=== PATIENT | female | born 1950 | race African-American/Black ===

== ENCOUNTER 2017-04-10 16:57 | Emergency (ER) | payer OTHER, MEDICAID ==
[2017-04-10 17:14] VITALS: BMI 24.1
[2017-04-10] MEDS ORDERED: NS 1000 ML 1,000 ML IV ONE (17:43)
--- NOTE | 2017-04-10 17:47 | DR.DIZZY ---
HPI - Time seen Time seen: 17:42 - PCP Primary Care Physician: JENNIFER SÁNCHEZ - Complaint Chief Complaint:: PT STATES " I AM WEAK AND MY EQU IS OFF AND I FEEL LIKE I DID WHEN I HAD A MINI STOKE".. Self Treatment fo Chief Complaint: PT READING A NEWSPAPER - Source History Provided: Patient - Mode of Arrival Mode of Arrival: Ambulatory - Timing Onset of Chief Complaint: 04/10/17 Symptom Onset: Unknown - Duration Duration: Unknown Duration: Hours - Location of Weakness Weakness Location: None - Context Onset: With heavy exertion Does pt take pot. toxic medication?: No History of: None, TIA Stroke Symptoms: None - Modifying factors Worsens: Nothing - Associated signs and symptoms Associated Signs and Symptoms: Imbalance, Weak PMH - PMH Past Medical History: Yes Past Medical History: Anemia, CHF, COPD, CVA, Dyslipidemia, GERD, Hypertension, [place] Past Surgical History: No Surgical History: Joint Replacement - Family History History of Family Medical Conditions: Yes Family Medical History: Diabetes Mellitus, Cancer, [place], Sudden Cardiac , Hypertension - Social History Does patient currently use any type of tobacco product: Yes Have you used tobacco products in the last 12 months: Yes Type of Tobacco Use: None Does any household member use tobacco: No Alcohol Use: None Do you use any recreational Drugs:: No Lives With: Family Lives Where: Home - infectious screening In the last 2 months have you had wt loss of >10#?: NO Have you had fever, night sweats or hemotysis?: No Have you traveled outside the country in the last 6 months?: No Isolation: Standard ROS - Review of Systems Eyes: No Symptoms Reported ENTM: No Symptoms Reported Respiratoy: No Symptoms Reported Cardiovascular: No Symptoms Reported Gastrointestinal/Abdominal: No Symptoms Reported Genitourinary: No Symptoms Reported Neurological: No Symptoms Reported Musculoskeletal: No Symptoms Reported Integumentary: No Symptoms Reported Hematologic/Lymphatic: No Symptoms Reported Endocrine: No Symptoms Reported Psychiatric: No Symptoms Reported All Other Systems: Reviewed and Negative PE - Vital Signs Vitals: Temperature 98.2 F Pulse Rate 115 Respiratory Rate 18 Blood Pressure [Right Arm] 185/75 Blood Pressure [Left Arm] 179/81 Blood Pressure 168/93 O2 Sat by Pulse Oximetry 99 - General Limitations: No Limitations General Appearance: Alert, In No Apparent Distress - Head Head Exam: Normal Inspection, Atraumatic - Eyes Eye exam: Normal Appearance, PERRL, EOMI Pupils: Regular, Round: Bilateral Sclera/Conjunctival: Normal Inspection: Bilateral Anterior Chamber: Normal Inspection: Bilateral - ENT ENT Exam: Normal Exam, Mucous Membranes Dry - Neck Neck Exam: Normal Inspection - Chest Chest Inspection: Normal Inspection - Respiratory Respiratory Exam: Normal Lung Sounds Bilat Respiratory Exam: Bilateral Clear to Auscultation - Cardiovascular Cardiovascular Exam: Regular Rate, Normal Rhythm - Abdominal Exam Abdominal Exam: Normal Inspection, Normal Bowel Sounds Abdominal Tenderness: negative: RUQ, RLQ, LUQ, LLQ, Epigastrium, Suprapubic, Diffuse, Mild, Moderate, Severe, Other - Rectal Rectal Exam: Deferred - Extremeties Extremities Exam: Normal Inspection - Back Back Exam: Normal Inspection, Full ROM - Neurologic Neurological Exam: Alert, Oriented X3, CN II-XII Intact Speech: Fluid Speech Cranial Nerve Exam: EOM Function (II, III, IV, ): Normal, Facial Sensation (V) : Normal, Gag reflex (XI): Normal Cerebellar Function: Finger to Nose: Normal, Heel to Kennedy: Normal Motor Strength - LUE: 3/5 Motor Strength - RUE: 3/5 Motor Strength - LLE: 3/5 Motor Strength - RLE: 3/5 DTR: achilles tendon (L): 2+ - Psychiatric Psychiatric Exam: Normal Affect, Normal Mood - Skin Skin Exam: Warm, Dry, Intact, Normal Color ROR - Labs Reviewed Result Diagrams: 04/10/17 18:06 04/10/17 18:06 Laboratory: WBC 7.5 X10^3/uL (3.6-10.0) 04/10/17 18:06 RBC 4.38 X10^6/uL (3.5-5.4) 04/10/17 18:06 Hgb 12.5 g/dL (12.0-16.0) 04/10/17 18:06 Hct 36.9 % (36.0-47.0) 04/10/17 18:06 MCV 84.3 fL (80.0-100.0) 04/10/17 18:06 MCH 28.6 pg (27.0-34.0) 04/10/17 18:06 MCHC 34.0 g/dL (33.0-35.0) 04/10/17 18:06 RDW 13.8 % (11.6-16.5) 04/10/17 18:06 Plt Count 194 X10^3/uL (150.0-450.0) 04/10/17 18:06 MPV 10.0 fL (7.4-11.0) 04/10/17 18:06 Neut % 61.3 % (42.0-75.0) 04/10/17 18:06 Lymph % 25.7 % (21.0-51.0) 04/10/17 18:06 Alfalfa % 9.9 % (0.0-13.0) 04/10/17 18:06 Eos % 2.6 % (0.9-2.9) 04/10/17 18:06 Baso % 0.5 % (0.2-1.0) 04/10/17 18:06 Neut # 4.6 x10^3/uL (2.2-4.8) 04/10/17 18:06 Lymph # 1.9 X10^3/uL (1.3-2.9) 04/10/17 18:06 Alfalfa # 0.7 x10^3/uL (0.3-0.8) 04/10/17 18:06 Eos # 0.2 x10^3/uL (0.0-0.2) 04/10/17 18:06 Baso # 0.0 X10^3/uL (0.0-0.1) 04/10/17 18:06 Absolute Nucleated RBC 0.0 /100WBC 04/10/17 18:06 Sodium 143 mmol/L (136-145) 04/10/17 18:06 Corrected Sodium 144 mmol/L (136-145) 04/10/17 18:06 Potassium 3.8 mmol/L (3.5-5.1) 04/10/17 18:06 Chloride 105 mmol/L (98-107) 04/10/17 18:06 Carbon Dioxide 30.0 mmol/L (21-32) 04/10/17 18:06 BUN 16 mg/dL (7-18) 04/10/17 18:06 Creatinine 0.77 mg/dL (0.55-1.02) 04/10/17 18:06 Est GFR (MDRD) Af Amer > 60 (>60) 04/10/17 18:06 Est GFR (MDRD) Non-Af > 60 (>60) 04/10/17 18:06 Glucose 161 mg/dL (65-99) H 04/10/17 18:06 Calcium 8.9 mg/dL (8.5-10.1) 04/10/17 18:06 Corrected Calcium TNP 04/10/17 18:06 Total Bilirubin 0.70 mg/dL (0.2-1.0) 04/10/17 18:06 AST 19 Units/L (15-37) 04/10/17 18:06 ALT 24 Units/L (12-78) 04/10/17 18:06 Alkaline Phosphatase 92 Units/L (46-116) 04/10/17 18:06 Total Protein 7.4 g/dL (6.4-8.2) 04/10/17 18:06 Albumin 3.9 g/dL (3.4-5.0) 04/10/17 18:06 Globulin 3.5 g/dL (2.5-4.5) 04/10/17 18:06 Albumin/Globulin Ratio 1.1 Ratio (1.1-2.1) 04/10/17 18:06 - Diagnosis Discharge Problem: Heat exhaustion Qualifiers: Encounter type: initial encounter Qualified Code(s): T67.5XXA - Heat exhaustion , unspecified, initial encounter - Discharge Plan Condition: Stable - Follow ups/Referrals Follow ups/Referrals: NFD,None [Primary Care Provider] - 3 days - Instructions
[2017-04-10] MEDS ORDERED: NS 1000 ML 1,000 ML ONE ×2 (18:05→18:59)
[2017-04-10 18:27] LABS: ALANINE AMINOTRANSFERASE 24 Units/L (12-78); ALBUMIN 3.9 g/dL (3.4-5.0); ALKALINE PHOSPHATASE 92 Units/L (46-116); ASPARTATE AMINO TRANSFERASE 19 Units/L (15-37); BASOPHILS % (AUTO) 0.5 % (0.2-1.0); BLOOD UREA NITROGEN 16 mg/dL (7-18); CALCIUM 8.9 mg/dL (8.5-10.1); CHLORIDE 105 mmol/L (98-107); COR NA(FOR HYPERGLY) 144 mmol/L (136-145); CREATININE 0.77 mg/dL (0.55-1.02); EOSINOPHILS # (AUTO) 0.2 x10^3/uL (0.0-0.2); EOSINOPHILS % (AUTO) 2.6 % (0.9-2.9); GLUCOSE 161 mg/dL (65-99); HEMATOCRIT 36.9 % (36.0-47.0); HEMOGLOBIN 12.5 g/dL (12.0-16.0); LYMPHOCYTES # (AUTO) 1.9 X10^3/uL (1.3-2.9); LYMPHOCYTES % (AUTO) 25.7 % (21.0-51.0); MEAN CORPUSCULAR HEMOGLOBIN 28.6 pg (27.0-34.0); MEAN CORPUSCULAR VOLUME 84.3 fL (80.0-100.0); MONOCYTES # (AUTO) 0.7 x10^3/uL (0.3-0.8); MONOCYTES % (AUTO) 9.9 % (0.0-13.0); NEUTROPHILS # (AUTO) 4.6 x10^3/uL (2.2-4.8); NEUTROPHILS % (AUTO) 61.3 % (42.0-75.0); PLATELET COUNT 194 X10^3/uL (150.0-450.0); RED BLOOD COUNT 4.38 X10^6/uL (3.5-5.4); RED CELL DISTRIBUTION WIDTH 13.8 % (11.6-16.5); SODIUM 143 mmol/L (136-145); TOTAL PROTEIN 7.4 g/dL (6.4-8.2); WHITE BLOOD COUNT 7.5 X10^3/uL (3.6-10.0); eGFR BLACK RACES > 60 (>60); eGFR NON BLACK RACES > 60 (>60)
[2017-04-10 19:36] VITALS: BP 155/75
== END 2017-04-10 19:45 | disposition home or self-care (01) ==
LOC: ER 17:26
DX: T67.5XXA Heat exhaustion, unspecified, initial encounter (principal)
CPT/HCPCS: 36415; 80053; 85025; 96365; 99283; A4222

== ENCOUNTER → 2017-04-21 | Outpatient (CLI) | payer OTHER, MEDICAID ==
[2017-04-10 19:36] VITALS: BP 155/75
[2017-04-21 10:41] LABS: BASOPHILS % (AUTO) 0.8 % (0.2-1.0); EOSINOPHILS # (AUTO) 0.2 x10^3/uL (0.0-0.2); EOSINOPHILS % (AUTO) 3.5 % (0.9-2.9); HEMATOCRIT 34.7 % (36.0-47.0); HEMOGLOBIN 11.7 g/dL (12.0-16.0); LYMPHOCYTES # (AUTO) 1.6 X10^3/uL (1.3-2.9); LYMPHOCYTES % (AUTO) 25.4 % (21.0-51.0); MEAN CORPUSCULAR HEMOGLOBIN 28.4 pg (27.0-34.0); MEAN CORPUSCULAR HGB CONC 33.7 g/dL (33.0-35.0); MEAN CORPUSCULAR VOLUME 84.4 fL (80.0-100.0); MEAN PLATELET VOLUME 10.2 fL (7.4-11.0); MONOCYTES # (AUTO) 0.6 x10^3/uL (0.3-0.8); MONOCYTES % (AUTO) 9.8 % (0.0-13.0); NEUTROPHILS # (AUTO) 3.8 x10^3/uL (2.2-4.8); NEUTROPHILS % (AUTO) 60.5 % (42.0-75.0); PLATELET COUNT 186 X10^3/uL (150.0-450.0); RED BLOOD COUNT 4.11 X10^6/uL (3.5-5.4); RED CELL DISTRIBUTION WIDTH 13.8 % (11.6-16.5); WHITE BLOOD COUNT 6.2 X10^3/uL (3.6-10.0)
[2017-04-21 10:59] LABS: ALANINE AMINOTRANSFERASE 27 Units/L (12-78); ALBUMIN 3.7 g/dL (3.4-5.0); ALKALINE PHOSPHATASE 88 Units/L (46-116); ASPARTATE AMINO TRANSFERASE 21 Units/L (15-37); BLOOD UREA NITROGEN 21 mg/dL (7-18); CALCIUM 8.7 mg/dL (8.5-10.1); CARBON DIOXIDE 31.7 mmol/L (21-32); CHLORIDE 107 mmol/L (98-107); CHOL/HDL RATIO 2.2 (0.0-5.0); CHOLESTEROL 126 mg/dL (0-200); CREATININE 0.69 mg/dL (0.55-1.02); GLUCOSE 102 mg/dL (65-99); HDL CHOLESTEROL 57 mg/dL (40-60); SODIUM 144 mmol/L (136-145); TOTAL PROTEIN 7.1 g/dL (6.4-8.2); TRIGLYCERIDES 64 mg/dL (0-150); eGFR BLACK RACES > 60 (>60); eGFR NON BLACK RACES > 60 (>60)
[2017-04-21 11:22] LABS: CREATININE,URINE 140.31 mg/dL (29-226); MICROALBUMIN,URINE 8.6 mg/L
== END ==
LOC: LAB 10:06
PROVIDERS: ATTEND Nurse Practitioner Family
DX: I10 Essential (primary) hypertension (principal)
CPT/HCPCS: 36415; 80053; 80061; 82043; 85025

== ENCOUNTER → 2017-05-23 | Outpatient (CLI) | payer OTHER, MEDICAID ==
--- NOTE | 2017-05-23 16:23 | MG ---
Examination: Bilateral screening mammogram. Clinical history: Routine screening. Technique: Digital CC and MLO views of both breasts were obtained. Computer aided detection analysis was performed and used during the interpretation. Comparison: 01/13/2012, 10/11/2011. Findings: The breasts are composed scattered fibroglandular densities. A pacemaker/defibrillator device partial ly obscures visualization of the superior portion of the left breast. Benign-appearing calcifications are noted in the breasts bilaterally. No suspicious mass, area of architectural distortion or suspicious cluster of microcalcifications is noted. Impression: 1. No mammographic evidence of malignancy. BI-RADS category 2-benign findings. Recommend routine annual screening mammogram. Diagnostic CAD was utilized and reviewed. * 0 (ZERO) - ASSESSMENT INCOMPLETE; ADDITIONAL IMAGING IS NEEDED. * 0C - ASSESSMENT INCOMPLETE, NEEDS ADDITIONAL IMAGING EVALUATION AND/OR PRIOR MAMMOGRAMS FOR COMPARI SON. * 1/1 (ONE) - NEGATIVE. * 2/II (TWO) - BENIGN FINDINGS. * 3/III (THREE) - PROBABLY BENIGN FINDING; SHORT INTERVAL FOLLOW-UP SUGGESTED. * 4/IV (FOUR) - SUSPICIOUS ABNORMALITY; BIOPSY SHOULD BE CONSIDERED. * 5/V - HIGHLY SUSPICIOUS OF MALIGNANCY; BIOPSY SHOULD BE PERFORMED. * 6/ - KNOWN BIOPSY PROVEN MALIGNANCY-APPROPRIATE ACTION SHOULD BE TAKEN. A NEGATIVE X-RAY REPORT SHOULD NOT DELAY BIOPSY IF A DOMINANT OR CLINICALLY SUSPICIOUS MASS IS PRESENT; 4 TO 8 PERCENT OF CANCERS ARE NOT IDENTIFIED BY X-RAY. A NEGATIVE REPORT MAY REINFORCE THE CLINICAL IMPRESSION. ADENOSIS AND DENSE BREASTS MAY OBSCURE AN UNDERLYING NEOPLASM. Reported By:
== END ==
LOC: RAD 14:49
PROVIDERS: ATTEND Nurse Practitioner Family
DX: Z12.31 Encounter for screening mammogram for malignant neoplasm of breast (principal)
CPT/HCPCS: 77067

== ENCOUNTER 2017-10-07 19:45 | Emergency (ER) | payer OTHER, MEDICAID ==
[2017-10-07 19:52] VITALS: BP 140/67; BMI 24.1
--- NOTE | 2017-10-09 09:39 | DR.GENAD ---
HPI - PCP Primary Care Physician: AVINASH CARMONA - Complaint/Symptoms Chief Complaint:: PT STUMPED TOE APPROX 3 DAYS AGO; SECOND TOE ON LEFT FOOT Self Treatment fo Chief Complaint: SOAKED IN EPSON SALT - Source History Provided: Patient - Mode of Arrival Mode of Arrival: Ambulatory - Timing Onset of Chief Complaint: 10/05/17 PMH - PMH Past Medical History: Yes Past Medical History: Hypertension Past Medical History Comment: PACEMAKER W/DEFIB; HIATAL HERNIA Past Surgical History: Yes Surgical History: Joint Replacement - Family History History of Family Medical Conditions: No Family Medical History: Diabetes Mellitus, Cancer, [place], Sudden Cardiac , Hypertension - Social History Alcohol Use: None Do you use any recreational Drugs:: No Lives With: Alone Lives Where: Home - infectious screening In the last 2 months have you had wt loss of >10#?: NO Have you had fever, night sweats or hemotysis?: No Have you traveled outside the country in the last 6 months?: No Isolation: Standard PE - Vital Signs Vitals: Temperature 98.5 F Pulse Rate 60 Respiratory Rate 20 Blood Pressure [Right Arm] 155/75 Blood Pressure [Left Arm] 179/81 Blood Pressure 140/67 O2 Sat by Pulse Oximetry 97 - Discharge Plan Disposition: LWBS After Triage Condition: Stable - Follow ups/Referrals Follow ups/Referrals: Avinash Carmona [Primary Care Provider] - 3 days - Instructions
== END 2017-10-07 21:56 | disposition left against medical advice (07) ==
LOC: ER 19:59
DX: M25.572 Pain in left ankle and joints of left foot (principal)
CPT/HCPCS: 99281

== ENCOUNTER 2018-12-15 17:15 | Observation (INO) ==
[2018-12-15] MEDS ORDERED: CATAPRES TAB 0.2 MG PO ONE (17:54)
[2018-12-15] MEDS ORDERED: CATAPRES TAB 0.2 MG ONE (17:56)
--- NOTE | 2018-12-15 18:18 | DR.GENAD ---
HPI Time Seen Time Seen by Provider: 12/15/18 18:12 PCP Primary Care Physician: mushtaq Complaint/Symptoms Chief Complaint:: pt stated she had a defibulator placed in years ago with dr modi in [place] in 2008. she stated she has been having sharp pain in her epigastric, left side of her neck and left armpit area. pain happens about once every hour Source History Provided: Patient Mode of Arrival Mode of Arrival: Ambulatory Timing Onset of Chief Complaint: 12/14/18 PMH PMH Past Medical History: Yes Past Medical History: Hypertension Past Surgical History: Yes Surgical History: Joint Replacement Past Surgical History Comment: defibulator Family History History of Family Medical Conditions: Yes Family Medical History: Diabetes Mellitus, Cancer, [place], Sudden Cardiac and Hypertension Social History Does patient currently use any type of tobacco product: No Have you used tobacco products in the last 12 months: No Type of Tobacco Use: None Does any household member use tobacco: No Alcohol Use: None Do you use any recreational Drugs:: No Lives With: Family Lives Where: Home infectious screening In the last 2 months have you had wt loss of >10#?: NO Have you had fever, night sweats or hemotysis?: No Have you traveled outside the country in the last 6 months?: No Isolation: Standard ROS Review of Systems Constitutional: Weakness and Fatigue; negative Chills, Fever and Loss of Appetite Eyes: No Symptoms Reported; negative Eye Pain, Tearing and Discharge ENTM: No Symptoms Reported; negative Ear Pain, Ear Discharge, Nose Discharge, Nose Congestion and Throat Pain Respiratoy: Short of Breath; negative No Symptoms Reported, Productive Cough, Wheezing and Hemoptysis Cardiovascular: Chest Pain; negative Edema and Syncope Gastrointestinal/Abdominal: Abdominal Pain; negative Constipation, Diarrhea, Nausea and Vomiting Genitourinary: No Symptoms Reported; negative Dysuria, Frequency and Hematuria Neurological: Weakness and Dizziness; negative Headache and Seizure Musculoskeletal: Joint Pain, Muscle Pain and Chest wall; negative Back Pain Integumentary: No Symptoms Reported and Other; negative Rash, Itching, Bruises and Juandice Endocrine: negative Flushing, Increased Thirst and Increased Urine Psychiatric: No Symptoms Reported All Other Systems: Reviewed and Negative PE Vital Signs Vitals: Temperature 98.4 F Pulse Rate [Apical] 60 Pulse Rate 70 Respiratory Rate 18 Blood Pressure [Right Arm] 157/78 Blood Pressure [Left Arm] 136/66 Blood Pressure 191/84 O2 Sat by Pulse Oximetry 95 General Limitations: No Limitations General Appearance: Alert and In No Apparent Distress; negative Anxious, Lethargic and In Distress Head Head Exam: Normal Inspection, Atraumatic and Normocephalic Eyes Eye exam: Normal Appearance, PERRL and EOMI; negative Scleral Icterus, Conjunctival Injection, Nystagmus, Miosis, Mydrasis, Periorbital Swelling and Periorbital Tenderness ENT ENT Exam: Normal Oropharynx, Normal External Ear Exam, Mucous Membranes Moist and TM's Normal Bilaterally External Ear Exam: Normal External Inspection; negative Auricular Hematoma, Auricular Trauma, Mastoid Tenderness, Pain with Movement, External Tenderness and Periauricular Adenopathy TM/Canal Exam: Bilateral: Normal Nose Exam: Normal Nose Exam; negative Sinus Tenderness, Nasal Deviation and Septal Hematoma Mouth Exam: Normal Inspection; negative Trismus, Lip Swelling and Tongue Swelling Throat Exam: Normal Inspection; negative Tonsillar Erythema, Tonsillomegaly and Tonsillar Exudate Neck Neck Exam: Normal Inspection and Full ROM; negative Trachea Midline, Tenderness, Meningismus, Lymphadenopathy and Thyromegaly Chest Chest Inspection: Normal Inspection and Symmetric Chest Wall Rise; negative Tenderness and Rash Respiratory Respiratory Exam: Normal Lung Sounds Bilat; negative Accessory Muscle Use, Chest Wall Tenderness and Respiratory Distress Respiratory Exam: Bilateral: Rhonchi and Lower: Rhonchi Cardiovascular Cardiovascular Exam: Regular Rate and Normal Rhythm; negative Bradycardia, T achycardia, Irregular Rhythm, Systolic Murmur, Diastolic Murmur, Rubs, Gallop and Clicks Abdominal Exam Abdominal Exam: Normal Inspection, Normal Bowel Sounds and Soft; negative Distention, Tenderness, Guarding, Rebound, Dimnished Bowel Sounds, Mass, Bruit and Hernia Abdominal Tenderness: negative RUQ, RLQ, LUQ, LLQ, Epigastrium and Suprapubic Extremities Extremities Exam: Normal Inspection and Normal Capillary Refill; negative Tenderness, Edema, Joint Swelling and Calf Tenderness Back Back Exam: Normal Inspection; negative Tenderness, Paraspinal Tenderness, Vertebral Tenderness and Rashes MDM Additional Information Additional Information Obtained From: Old Records and Family Differential Diagnosis Differential Diagnosis: DEFIBRILATOR MALFUCTION, CHEST PAIN, HYPERTENSION, [place], PNEUMONIA COURSE Treatment Treatment: SEE ORDERS. PO ASA CHEWABLE 324MG IN ED. Education/Counseling Education/Counseling: Patient and Family Educated On: Diagnosis ROR Labs Reviewed Laboratory Results Reviewed?: Yes Result Diagrams: 04/21/19 05:06 12/17/18 05:06 Laboratory: WBC 5.7 X10^3/uL (3.6-10.0) 12/17/18 05:06 RBC 3.53 X10^6/uL (3.5-5.4) 12/17/18 05:06 Hgb 10.2 g/dL (12.0-16.0) L 12/17/18 05:06 Hct 30.2 % (36.0-47.0) L 12/17/18 05:06 MCV 85.5 fL (80.0-100.0) 12/17/18 05:06 MCH 28.8 pg (27.0-34.0) 12/17/18 05:06 MCHC 33.7 g/dL (33.0-35.0) 12/17/18 05:06 RDW 13.6 % (11.6-16.5) 12/17/18 05:06 Plt Count 210 X10^3/uL (150.0-450.0) 12/17/18 05:06 MPV 9.5 fL (7.4-11.0) 12/17/18 05:06 Neut % (Auto) 56.6 % (42.0-75.0) 12/17/18 05:06 Lymph % (Auto) 26.8 % (21.0-51.0) 12/17/18 05:06 Andrews % (Auto) 12.5 % (0.0-13.0) 12/17/18 05:06 Eos % (Auto) 3.5 % (0.9-2.9) H 12/17/18 05:06 Baso % (Auto) 0.6 % (0.2-1.0) 12/17/18 05:06 Neut # (Auto) 3.2 x10^3/uL (2.2-4.8) 12/17/18 05:06 Lymph # (Auto) 1.5 X10^3/uL (1.3-2.9) 12/17/18 05:06 Andrews # (Auto) 0.7 x10^3/uL (0.3-0.8) 12/17/18 05:06 Eos # (Auto) 0.2 x10^3/uL (0.0-0.2) 12/17/18 05:06 Baso # (Auto) 0.0 X10^3/uL (0.0-0.1) 12/17/18 05:06 Absolute Nucleated RBC 0.1 /100WBC 12/17/18 05:06 INR Target Range - 12/15/18 18:21 INR 0.95 (0.8-1.3) 12/15/18 18:21 APTT 28.1 SECONDS (22.9-36.5) 12/15/18 18:21 PTT Comment - 12/15/18 18:21 Sodium 142 mmol/L (136-145) 12/17/18 05:06 Corrected Sodium 142 mmol/L (136-145) 12/17/18 05:06 Potassium 3.7 mmol/L (3.5-5.1) 12/17/18 05:06 Chloride 108 mmol/L (98-107) H 12/17/18 05:06 Carbon Dioxide 26.9 mmol/L (21-32) 12/17/18 05:06 BUN 14 mg/dL (7-18) 12/17/18 05:06 Creatinine 0.71 mg/dL (0.55-1.02) 12/17/18 05:06 Est GFR (MDRD) Af Amer > 60 (>60) 12/17/18 05:06 Est GFR (MDRD) Non-Af > 60 (>60) 12/17/18 05:06 Glucose 119 mg/dL (65-99) H 12/17/18 05:06 Calcium 8.5 mg/dL (8.5-10.1) 12/17/18 05:06 Corrected Calcium 9.2 mg/dL (8.5-10.1) 12/17/18 05:06 Magnesium 1.9 mg/dL (1.7-2.9) 12/17/18 05:06 Total Bilirubin 0.50 mg/dL (0.2-1.0) 12/17/18 05:06 AST 15 Units/L (15-37) 12/17/18 05:06 ALT 19 Units/L (12-78) 12/17/18 05:06 Alkaline Phosphatase 88 Units/L (46-116) 12/17/18 05:06 Creatine Kinase 126 Units/L (26-192) 12/16/18 05:03 CK-MB (CK-2) 1.5 ng/mL (0-4.0) 12/16/18 05:03 CK/CKMB % Calc 1.2 % (<4) 12/16/18 05:03 Troponin I 0.02 ng/mL (0-1.5) 12/16/18 05:03 Total Protein 6.2 g/dL (6.4-8.2) L 12/17/18 05:06 Albumin 3.1 g/dL (3.4-5.0) L 12/17/18 05:06 Globulin 3.1 g/dL (2.5-4.5) 12/17/18 05:06 Albumin/Globulin Ratio 1.0 Ratio (1.1-2.1) L 12/17/18 05:06 Specimen Type Clean catch urine 12/16/18 05:40 Urine Color Yellow (YELLOW) 12/16/18 05:40 Urine Appearance Clear (CLEAR) 12/16/18 05:40 Urine pH 6.0 (5.0 - 8.0) 12/16/18 05:40 Ur Specific [place]ero 1.015 (1.000-1.030) 12/16/18 05:40 Urine Protein Negative (NEGATIVE) 12/16/18 05:40 Urine Glucose (UA) Negative (NEGATIVE) 12/16/18 05:40 Urine Ketones Negative (NEGATIVE) 12/16/18 05:40 Urine Occult Blood Negative (NEGATIVE) 12/16/18 05:40 Urine Nitrite Negative (NEGATIVE) 12/16/18 05:40 Urine Bilirubin Negative (NEGATIVE) 12/16/18 05:40 Urine Urobilinogen 1+ (NORMAL) 12/16/18 05:40 Ur Leukocyte Esterase Negative (NEGATIVE) 12/16/18 05:40 Urine RBC None seen /HPF (NONE SEEN) 12/16/18 05:40 Urine WBC 0-2 /HPF (NONE SEEN) 12/16/18 05:40 Ur Squamous Epith Cells Rare /HPF (NEGATIVE) 12/16/18 05:40 Amorphous Sediment Trace /HPF (NEGATIVE) 12/16/18 05:40 Urine Bacteria Trace /HPF (NEGATIVE) 12/16/18 05:40 Ur Culture Indicated? No/not indicated 12/16/18 05:40 Other Results Comments: DISCUSS PATIENT WITH . GAS COMPRESSOR OPERATOR [facility]. WANT DEFRIBILLATOR CHECK. MR NAVARRO THE TECK WILL BE HERE IN AM TO CHECK THE DEVICE. XRAY XRAY Interpreted by: Radiologist XRAY Findings: REPORT ON RECORD NOTED AND DISCUSS WITH PATIENT. EKG Rate: 60 Dilliner: Normal Rhythm: NSR and Paced Block: None Hypertrophy: None ST: Normal and Nonsp Instructions Instructions: Nonspecific Chest Pain Hypertension, [id number] Heart Failure
[2018-12-15 18:27] LABS: BASOPHILS % (AUTO) 0.7 % (0.2-1.0); EOSINOPHILS # (AUTO) 0.2 x10^3/uL (0.0-0.2); EOSINOPHILS % (AUTO) 3.6 % (0.9-2.9); HEMATOCRIT 30.9 % (36.0-47.0); HEMOGLOBIN 10.5 g/dL (12.0-16.0); LYMPHOCYTES # (AUTO) 1.5 X10^3/uL (1.3-2.9); LYMPHOCYTES % (AUTO) 25.3 % (21.0-51.0); MEAN CORPUSCULAR HEMOGLOBIN 28.4 pg (27.0-34.0); MEAN CORPUSCULAR HGB CONC 33.8 g/dL (33.0-35.0); MEAN PLATELET VOLUME 8.9 fL (7.4-11.0); MONOCYTES # (AUTO) 0.7 x10^3/uL (0.3-0.8); NEUTROPHILS # (AUTO) 3.6 x10^3/uL (2.2-4.8); NEUTROPHILS % (AUTO) 59.4 % (42.0-75.0); PLATELET COUNT 209 X10^3/uL (150.0-450.0); RED BLOOD COUNT 3.68 X10^6/uL (3.5-5.4); RED CELL DISTRIBUTION WIDTH 13.5 % (11.6-16.5); WHITE BLOOD COUNT 6.1 X10^3/uL (3.6-10.0)
[2018-12-15 18:46] LABS: BLOOD UREA NITROGEN 14 mg/dL (7-18); CARBON DIOXIDE 29.3 mmol/L (21-32); CHLORIDE 107 mmol/L (98-107); CREATININE 0.69 mg/dL (0.55-1.02); SODIUM 144 mmol/L (136-145); TROPONIN I < 0.02 ng/mL (0-1.5); eGFR NON BLACK RACES > 60 (>60)
[2018-12-15 18:50] LABS: ALANINE AMINOTRANSFERASE 21 Units/L (12-78); ALBUMIN 3.6 g/dL (3.4-5.0); ALKALINE PHOSPHATASE 99 Units/L (46-116); ASPARTATE AMINO TRANSFERASE 17 Units/L (15-37); CKMB % 1.1 % (<4); CREATINE KINASE 163 Units/L (26-192); CREATINE KINASE MB 1.8 ng/mL (0-4.0); TOTAL PROTEIN 6.8 g/dL (6.4-8.2)
[2018-12-15] MEDS ORDERED: ASPIRIN 81 MG CHEWTAB PO ONE (20:05)
[2018-12-15] MEDS ORDERED: ASPIRIN 81 MG CHEWTAB ONE (20:06)
[2018-12-15] MEDS ORDERED: ASPIRIN 81 MG CHEWTAB PO SCH (21:00)
--- NOTE | 2018-12-15 23:30 | RAD ---
Chest, one view Indication: Sharp pain in her epigastric region, left side of her neck and left armpit Comparison: 10/24/2015 Findings: Accounting for AP technique, low lung volumes and patient rotation, there is stable mild enlargement of the cardiac silhouette without congestive failure. Left-sided AICD noted. Lungs are hypoinflated but grossly clear. No significant pleural effusion is identified. No pneumothorax. Impression: Stable cardiomegaly without CHF or additional acute cardiopulmonary abnormality. Reported By:
[2018-12-15 23:31] LABS: CKMB % 1.2 % (<4); CREATINE KINASE 148 Units/L (26-192); CREATINE KINASE MB 1.8 ng/mL (0-4.0); TROPONIN I < 0.02 ng/mL (0-1.5)
[2018-12-16 01:21] VITALS: BMI 25.1
[2018-12-16 05:32] LABS: BASOPHILS % (AUTO) 0.4 % (0.2-1.0); EOSINOPHILS # (AUTO) 0.2 x10^3/uL (0.0-0.2); EOSINOPHILS % (AUTO) 3.9 % (0.9-2.9); HEMATOCRIT 29.4 % (36.0-47.0); HEMOGLOBIN 9.9 g/dL (12.0-16.0); LYMPHOCYTES # (AUTO) 1.6 X10^3/uL (1.3-2.9); LYMPHOCYTES % (AUTO) 28.1 % (21.0-51.0); MEAN CORPUSCULAR HEMOGLOBIN 28.6 pg (27.0-34.0); MEAN CORPUSCULAR HGB CONC 33.6 g/dL (33.0-35.0); MEAN CORPUSCULAR VOLUME 85.1 fL (80.0-100.0); MEAN PLATELET VOLUME 9.6 fL (7.4-11.0); MONOCYTES # (AUTO) 0.6 x10^3/uL (0.3-0.8); MONOCYTES % (AUTO) 10.8 % (0.0-13.0); NEUTROPHILS # (AUTO) 3.2 x10^3/uL (2.2-4.8); NEUTROPHILS % (AUTO) 56.8 % (42.0-75.0); PLATELET COUNT 196 X10^3/uL (150.0-450.0); RED BLOOD COUNT 3.45 X10^6/uL (3.5-5.4); RED CELL DISTRIBUTION WIDTH 13.7 % (11.6-16.5); WHITE BLOOD COUNT 5.6 X10^3/uL (3.6-10.0)
[2018-12-16 05:42] LABS: ALANINE AMINOTRANSFERASE 20 Units/L (12-78); ALBUMIN 3.2 g/dL (3.4-5.0); ALKALINE PHOSPHATASE 89 Units/L (46-116); ASPARTATE AMINO TRANSFERASE 16 Units/L (15-37); BLOOD UREA NITROGEN 12 mg/dL (7-18); CALCIUM 8.5 mg/dL (8.5-10.1); CARBON DIOXIDE 29.6 mmol/L (21-32); CHLORIDE 107 mmol/L (98-107); COR CA(FOR HYPOALB) 9.1 mg/dL (8.5-10.1); CREATININE 0.64 mg/dL (0.55-1.02); SODIUM 143 mmol/L (136-145); TOTAL PROTEIN 6.1 g/dL (6.4-8.2); eGFR NON BLACK RACES > 60 (>60)
[2018-12-16 06:06] LABS: BILIRUBIN,URINE NEGATIVE (NEGATIVE); BLOOD/HEMOGLOBIN,URINE NEGATIVE (NEGATIVE); GLUCOSE, URINE NEGATIVE (NEGATIVE); KETONES,URINE NEGATIVE (NEGATIVE); LEUKOCYTE ESTERASE ,URINE NEGATIVE (NEGATIVE); NITRITES,URINE NEGATIVE (NEGATIVE); PROTEIN,URINE NEGATIVE (NEGATIVE); UROBILINOGEN,URINE 1+ (NORMAL)
[2018-12-16 06:08] LABS: CKMB % 1.2 % (<4); CREATINE KINASE MB 1.5 ng/mL (0-4.0); TROPONIN I 0.02 ng/mL (0-1.5)
[2018-12-16 06:29] LABS: APPEARANCE,URINE CLEAR (CLEAR); COLOR,URINE YELLOW (YELLOW)
[2018-12-16 06:31] LABS: AMORPHOUS SEDIMENT,UR TRACE /HPF (NEGATIVE); BACTERIA,URINE TRACE /HPF (NEGATIVE); RBC,URINE NONE SEEN /HPF (NONE SEEN); SQUAMOUS EPITHELIAL CELL,UR RARE /HPF (NEGATIVE)
[2018-12-16] MEDS ORDERED: POTASSIUM CHL 40 MEQ/NS 0.45% 500 ML IV PRN (06:36)
[2018-12-16] MEDS ORDERED: K-RIDER 10 MEQ/NS 100 ML 10 MEQ/100 ML BAG IV PRN (06:36)
[2018-12-16] MEDS ORDERED: KLOR-CON PO PRN (06:36)
[2018-12-16] MEDS ORDERED: MICRO K EXTEN CAP 10 MEQ PO PRN (06:36)
[2018-12-16] MEDS ORDERED: POTASSIUM CHL 60 MEQ/NS 0.45% 500 ML IV PRN (06:36)
[2018-12-16] MEDS ORDERED: K-DUR TAB 20 MEQ PO PRN (06:36)
[2018-12-16] MEDS ORDERED: POTASSIUM CHLORIDE LIQ 20 MEQ UDC PO PRN (06:36)
[2018-12-16] MEDS ORDERED: NS 500 ML IV 500 ML ONE (08:31)
[2018-12-16] MEDS: MAGNESIUM SULFATE 1 GRAM/100 mL PREMIX 1 GM/100 ML BAG IV PRN ×2 (08:34→20:49)
--- NOTE | 2018-12-16 17:37 | DR.H&P ---
H&P - History & Physical for Day of: H&P Date: 12/15/18 - Chief Complaint Chief Complaint: CHEST PAIN - History of Present Illness History of Present Illness: IS A 68 YEAR OLD PATIENT OF OURS WHO PRESENTED TO THE EMERGENCY ROOM WITH COMPLAINTS OF SHARP, EPIGASTRIC AND CHEST PAIN. SHE REPORTS THAT PAIN RADIATES TO THE LEFT ARM AND LEFT SIDE NECK. SHE REPORTS THAT PAIN COMES AND GOES. SHE HAS A DEFIBRULATOR THAT WAS PLACED BY DR.S TREJO IN 2008. ON ARRIVAL, VITALS WERE 98.6-70-16-99%-191/84. LABS WERE OBTAINED. ABNORMAL LAB VALUES INCLUDE THE FOLLOWING: HGB 10.5, HCT 30.9, GLUCOSE 100. CARDIAC ENZYMES WITHIN NORMAL LIMITS. EKG REVEALED: ATRIAL PACED RHYTHM, LEFT VENTRICULAR HYPERTROPHY, HR 60. CHEST XRAY REVEALED: Stable cardiomegaly without CHF or additional acute cardiopulmonary abnormality. ER PHYSICIAN SPOKE WITH DEFIBRILLATOR CRM CAMPAIGN MANAGER AND HE PLANS TO COME FOR PACEMAKER/DEFIBRILLATOR INTERRIGATION IN THE MORNING. SHE WAS GIVEN ASA 324MG PO X 1 AND CATAPRES 0.2MG PO X 1 IN THE ER. SHE WAS ADMITTED FOR FURTHER EVALUATION OF CHEST PAIN, RULE OUT ACUTE AK. WE WILL OBTAIN SERIAL CARDIAC ENZYMES AND EKGS. WE PLAN TO FOLLOW- UP WITH AM LABS AND CONTINUE TO MONITOR. - Past Medical History Past Medical History: Hypertension Additional Medical History: Chronic Back Pain, Freq UTI's - Past Surgical History Surgical History: Joint Replacement Additional Surgical History: ICD, Right Hip Replacement - Family History Family Medical History: Diabetes Mellitus, Cancer, [place], Sudden Cardiac , Hypertension - Social History Does patient currently use any type of tobacco product: No Have you used tobacco products in the last 12 months: No Type of Tobacco Use: None Does any household member use tobacco: No Alcohol Use: None Drug Use: None - Medications Home Medications: No Known Drug Allergies Allergy (Verified 04/10/17 19:27) CONTINUE taking the following medications amlodipine 10 mg PO DAILY 12/15/18 [History] gabapentin 300 mg PO HS 12/15/18 [History] montelukast 10 mg PO DAILY 12/15/18 [History] omeprazole 40 mg PO DAILY 12/15/18 [History] - Review of Systems Constitutional: See HPI Eyes: No Symptoms Reported ENT: No Symptoms Reported Respiratory: No Symptoms Reported Cardiovascular: Chest Pain, See HPI Gastrointestinal: No Symptoms Reported Genitourinary: No Symptoms Reported Musculoskeletal: See HPI, Arm Pain, Neck Pain Skin: No Symptoms Reported Neurological: No Symptoms Reported - Physical Exam Vital Signs: Temperature 97.9 F Pulse Rate [Apical] 65 Pulse Rate 70 Respiratory Rate 18 Blood Pressure [Right Arm] 157/78 Blood Pressure [Left Arm] 140/59 Blood Pressure 191/84 O2 Sat by Pulse Oximetry 97 Oriented: Normal Eyes: Normal Ear: Normal Nose: Normal Throat: Normal Respiratory: Diminished Throughout Cardiovascular: Normal. negative: S3, S4, Murmur : Normal Auscultation: Bowel Sounds: Normal Palpation: Normal Tenderness: Normal Skin: Normal Musculoskeletal: Normal Psychiatric: Normal Mood Description: Calm Affect: Normal Speech Pattern: Clear - Assessment/Plan (1) Chest pain, rule out acute myocardial infarction Status: Acute Plan: SERIAL CARDIAC ENZYMES AND EKG, TELEMETRY, CONTINUE TO MONITOR (2) Presence of combination internal cardiac defibrillator (ICD) and pacemaker Status: Chronic Plan: PACEMAKER/DEFIBRILLATOR CHECK IN AM, TELEMETRY (3) Hyperlipidemia Qualifiers: Hyperlipidemia type: mixed hyperlipidemia Qualified Code(s): E78.2 - Mixed hyperlipidemia Status: Chronic Plan: CONTINUE HOME MEDS (4) Hypertension Qualifiers: Hypertension type: essential hypertension Qualified Code(s): I10 - Essential (primary) hypertension Status: Chronic Plan: CONTINUE HOME MEDS - Allergies Allergies/Adverse Reactions: Allergies Allergy/AdvReac Type Severity Reaction Status Date / Time No Known Drug Allergies Allergy Verified 04/10/17 19:27
[2018-12-16] MEDS: ZESTRIL TAB 40 MG PO SCH (20:44)
[2018-12-16] MEDS: BETAPACE AF PO SCH (20:44)
[2018-12-16] MEDS ORDERED: NEURONTIN CAP 300 MG PO SCH (21:00)
[2018-12-17 05:11] VITALS: BP 136/66
[2018-12-17 05:33] LABS: BASOPHILS % (AUTO) 0.6 % (0.2-1.0); EOSINOPHILS # (AUTO) 0.2 x10^3/uL (0.0-0.2); EOSINOPHILS % (AUTO) 3.5 % (0.9-2.9); HEMATOCRIT 30.2 % (36.0-47.0); HEMOGLOBIN 10.2 g/dL (12.0-16.0); LYMPHOCYTES # (AUTO) 1.5 X10^3/uL (1.3-2.9); LYMPHOCYTES % (AUTO) 26.8 % (21.0-51.0); MEAN CORPUSCULAR HEMOGLOBIN 28.8 pg (27.0-34.0); MEAN CORPUSCULAR HGB CONC 33.7 g/dL (33.0-35.0); MEAN CORPUSCULAR VOLUME 85.5 fL (80.0-100.0); MEAN PLATELET VOLUME 9.5 fL (7.4-11.0); MONOCYTES # (AUTO) 0.7 x10^3/uL (0.3-0.8); MONOCYTES % (AUTO) 12.5 % (0.0-13.0); NEUTROPHILS # (AUTO) 3.2 x10^3/uL (2.2-4.8); NEUTROPHILS % (AUTO) 56.6 % (42.0-75.0); PLATELET COUNT 210 X10^3/uL (150.0-450.0); RED BLOOD COUNT 3.53 X10^6/uL (3.5-5.4); RED CELL DISTRIBUTION WIDTH 13.6 % (11.6-16.5); WHITE BLOOD COUNT 5.7 X10^3/uL (3.6-10.0)
[2018-12-17 05:40] LABS: ALANINE AMINOTRANSFERASE 19 Units/L (12-78); ALBUMIN 3.1 g/dL (3.4-5.0); ALKALINE PHOSPHATASE 88 Units/L (46-116); ASPARTATE AMINO TRANSFERASE 15 Units/L (15-37); BLOOD UREA NITROGEN 14 mg/dL (7-18); CALCIUM 8.5 mg/dL (8.5-10.1); CARBON DIOXIDE 26.9 mmol/L (21-32); CHLORIDE 108 mmol/L (98-107); COR CA(FOR HYPOALB) 9.2 mg/dL (8.5-10.1); COR NA(FOR HYPERGLY) 142 mmol/L (136-145); CREATININE 0.71 mg/dL (0.55-1.02); MAGNESIUM 1.9 mg/dL (1.7-2.9); SODIUM 142 mmol/L (136-145); TOTAL PROTEIN 6.2 g/dL (6.4-8.2); eGFR NON BLACK RACES > 60 (>60)
[2018-12-17] MEDS: BETAPACE AF PO SCH (08:43)
[2018-12-17] MEDS: ZESTRIL TAB 40 MG PO SCH (08:43)
[2018-12-17] MEDS ORDERED: NORVASC TAB 10 MG PO SCH (09:00)
[2018-12-17] MEDS ORDERED: PriLOSEC PO SCH (09:00)
[2018-12-17] MEDS ORDERED: SINGULAIR TAB 10 MG PO SCH (09:00)
== END 2018-12-17 10:25 | disposition home or self-care (01) ==
LOC: ER 17:15 → MED/SURG 17:15
PROVIDERS: ADMIT Internal Medicine; ATTEND Internal Medicine
DX: Z95.810 Presence of automatic (implantable) cardiac defibrillator; E78.5 Hyperlipidemia, unspecified; I10 Essential (primary) hypertension; R07.89 Other chest pain
CPT/HCPCS: 36415; 71010; 71045; 80053; 81001; 82550; 82553; 83735; 84132; 84484; 85025; 85610; 85730; 93005; 94760; 96365; 96374; 99284; A4222; G0378; J3475; J7040

== ENCOUNTER 2021-03-19 01:00 | Inpatient (IN) ==
[2021-03-19] MEDS ORDERED: NS 1000 ML 1,000 ML IV ONE ×2 (01:30→10:59)
[2021-03-19] MEDS ORDERED: NS 1000 ML 1,000 ML ONE ×2 (01:34→11:07)
[2021-03-19] MEDS ORDERED: DOPAMINE IV PREMIX 400 MG/250 ML 400 MG/250 ML BAG IV ONE (01:34)
[2021-03-19] MEDS: DOPAMINE IV PREMIX 400 MG/250 ML 400 MG/250 ML BAG IV PRN ×2 (01:41→15:00)
--- NOTE | 2021-03-19 01:56 | DR.NAUSEAF ---
HPI Time Seen Time Seen by Provider: 03/19/21 01:19 Primary Care Physician Primary Care Physician: KRISTINE HPI Comment HPI Comment: A 70 y/o female with hx. of pancreatic cancer presented this morning via EMS with nausea, vomiting and feeling faint. Family reports that she was transiently less responsive. BP upon EMS assessment was 80/55. She was rele ased from [facility] on 03/18/2021 after having had an ERCP, Biliary Sphincterectomy and a temporary stent placed into the Pancreatic duct on 03/17/2021. Her primary diagnosis relating to this is Colon Cancer with Liver mets. Complaints Chief Complaint:: PT IN ED VIA STRETCHER PER [facility] WITH C/O NAUSEA. PT JUST GOT HOME FROM [facility] 03/18/21 WHERE SHE HAD SURGERY. COVID-19 Coronavirus risk:travel/contact w/high risk person: No Has patient experienced Coronavirus symptoms: No Reviewed Nurses Notes Reviewed: Yes Source History Provided: Patient, Family Member and EMS Mode of Arrival Mode of Arrival: Stretcher Timing Onset of Chief Complaint: 03/19/21 Context Recent: denies Travel, Contact Exposure and None Possible Ingestion: denies Unknown, ETOH, Ethylene Glycol, Isopropanol and Methanol : No Associated Signs and Symptoms Abdominal Pain Location: Epigastric Symptoms: Abdominal Pain PMH PMH Past Medical History: Yes Past Medical History: CHF and Hypertension Past Medical History Comment: COLON CANCER with Liver mets. PANCREATIC CANCER Past Surgical History: Yes Surgical History: Joint Replacement Past Surgical History Comment: PPM Family History History of Family Medical Conditions: Yes Family Medical History: Diabetes Mellitus, Cancer, [place], Sudden Cardiac and Hypertension Social History Does patient currently use any type of tobacco product: No Have you used tobacco products in the last 12 months: No Type of Tobacco Use: None Does any household member use tobacco: No Alcohol Use: None Do you use any recreational Drugs:: No Lives With: Family Lives Where: Home Travel Risk Coronavirus risk:travel/contact w/high risk person: No Has patient experienced Coronavirus symptoms: No Infectious screening In the last 2 months have you had wt loss of >10#?: NO Have you had fever, night sweats or hemotysis?: No Have you traveled outside the country in the last 6 months?: No Isolation: Standard ROS Review of Systems Constitutional: Fatigue Eyes: No Symptoms Reported ENTM: No Symptoms Reported Respiratoy: No Symptoms Reported Cardiovascular: No Symptoms Reported Gastrointestinal/Abdominal: Nausea and Vomiting Genitourinary: No Symptoms Reported Neurological: No Symptoms Reported Musculoskeletal: No Symptoms Reported Integumentary: No Symptoms Reported Hematologic/Lymphatic: No Symptoms Reported Endocrine: No Symptoms Reported Psychiatric: No Symptoms Reported PE Vital Signs Vitals: Temperature 97.5 F Pulse Rate 137 Respiratory Rate 17 Blood Pressure [Right Arm] 132/76 Blood Pressure [Left Arm] 136/66 Blood Pressure 104/76 O2 Sat by Pulse Oximetry 90 General Limitations: No Limitations General Appearance: Alert and In No Apparent Distress Head Head Exam: Normal Inspection, Atraumatic and Normocephalic Eyes Eye exam: EOMI and Scleral Icterus ENT ENT Exam: Normal Exam, Normal Oropharynx, Normal External Ear Exam and Mucous Membranes Moist Neck Neck Exam: Normal Inspection, Full ROM and Trachea Midline Chest Chest Inspection: Normal Inspection, Symmetric Chest Wall Rise and Other (port-a-cath on Rt. upper chest and PPM on Lt. upper chest. ) Respiratory Respiratory Exam: Normal Lung Sounds Bilat Cardiovascular Cardiovascular Exam: Regular Rate, Normal Rhythm, Normal Heart Sounds, +S1 and +S2 Abdominal Exam Abdominal Exam: Normal Inspection, Normal Bowel Sounds and Soft Rectal Rectal Exam: Deferred External Exam: Female: Deferred Extremities Extremities Exam: Edema (1-2+ b/l) Back Back Exam: Normal Inspection and Full ROM Neurologic Neurological Exam: Alert and Oriented X3 Psychiatric Psychiatric Exam: Normal Affect and Normal Mood Skin Skin Exam: Intact and Normal Color COURSE Reevaluation 1st: Improved Education/Counseling Education/Counseling: Patient, Family, Education and Counseling Educated On: Treatment, Diagnosis, Prognosis and Needs for Follow Up ROR Labs Reviewed Result Diagrams: 03/19/21 01:19 03/19/21 01:19 Laboratory: WBC 12.9 X10^3/uL (3.6-10.0) H 03/19/21 01:19 RBC 4.25 X10^6/uL (3.5-5.4) 03/19/21 01:19 Hgb 11.6 g/dL (12.0-16.0) L 03/19/21 01:19 Hct 35.2 % (36.0-47.0) L 03/19/21 01:19 MCV 82.9 fL (80.0-100.0) 03/19/21 01:19 MCH 27.3 pg (27.0-34.0) 03/19/21 01:19 MCHC 32.9 g/dL (33.0-35.0) L 03/19/21 01:19 RDW 20.3 % (11.6-16.5) H 03/19/21 01:19 Plt Count 183 X10^3/uL (150.0-450.0) 03/19/21 01:19 Plt Count Comment Adequate (ADEQUATE) 03/19/21 01:19 MPV 9.3 fL (7.4-11.0) 03/19/21 01:19 Neut % (Auto) 64.2 % (42.0-75.0) 03/19/21 01:19 Lymph % (Auto) 18.2 % (21.0-51.0) L 03/19/21 01:19 [place] % (Auto) 15.0 % (0.0-13.0) H 03/19/21 01:19 Eos % (Auto) 1.6 % (0.9-2.9) 03/19/21 01:19 Baso % (Auto) 1.0 % (0.2-1.0) 03/19/21 01:19 Neut # (Auto) 8.3 x10^3/uL (2.2-4.8) H 03/19/21 01:19 Lymph # (Auto) 2.4 X10^3/uL (1.3-2.9) 03/19/21 01:19 [place] # (Auto) 1.9 x10^3/uL (0.3-0.8) H 03/19/21 01:19 Eos # (Auto) 0.2 x10^3/uL (0.0-0.2) 03/19/21 01:19 Baso # (Auto) 0.1 X10^3/uL (0.0-0.1) 03/19/21 01:19 Absolute Nucleated RBC 0.1 /100WBC 03/19/21 01:19 Total Counted 100 03/19/21 01:19 Neutrophils % (Manual) 68 % (39-76) 03/19/21 01:19 Lymphocytes % (Manual) 21 % (13-43) 03/19/21 01:19 Monocytes % (Manual) 10 % (4-9) H 03/19/21 01:19 Eosinophils % (Manual) 1 % (0-6) 03/19/21 01:19 Plt Morphology Comment Normal (NORMAL) 03/19/21 01:19 RBC Morphology Abnormal (NORMAL) A 03/19/21 01:19 Anisocytosis 1+ A 03/19/21 01:19 Target Cells Present 03/19/21 01:19 Sodium 142 mmol/L (136-145) 03/19/21 01:19 Corrected Sodium 143 mmol/L (136-145) 03/19/21 01:19 Potassium 4.7 mmol/L (3.5-5.1) 03/19/21 01:19 Chloride 110 mmol/L (98-107) H 03/19/21 01:19 Carbon Dioxide 23.4 mmol/L (21-32) 03/19/21 01:19 BUN 34 mg/dL (7-18) H 03/19/21 01:19 Creatinine 1.27 mg/dL (0.55-1.02) H 03/19/21 01:19 Est GFR (MDRD) Af Amer 54 (>60) L 03/19/21 01:19 Est GFR (MDRD) Non-Af 44 (>60) L 03/19/21 01:19 Glucose 123 mg/dL (65-99) H 03/19/21 01:19 Lactic Acid 4.0 mmol/L (0.4-2.0) H 03/19/21 01:19 Calcium 6.4 mg/dL (8.5-10.1) L 03/19/21 01:19 Corrected Calcium 8.6 mg/dL (8.5-10.1) 03/19/21 01:19 Total Bilirubin 6.90 mg/dL (0.2-1.0) H 03/19/21 01:19 AST 204 Units/L (15-37) H 03/19/21 01:19 ALT 26 Units/L (12-78) 03/19/21 01:19 Alkaline Phosphatase 435 Units/L (46-116) H 03/19/21 01:19 Creatine Kinase 282 Units/L (26-192) H 03/19/21 01:19 CK-MB (CK-2) 1.8 ng/mL (0-4.0) 03/19/21 01:19 CK/CKMB % Calc 0.6 % (<4) 03/19/21 01:19 Troponin I 0.23 ng/mL (0-1.5) 03/19/21 01:19 Total Protein 4.5 g/dL (6.4-8.2) L 03/19/21 01:19 Albumin 1.3 g/dL (3.4-5.0) L 03/19/21 01:19 Globulin 3.2 g/dL (2.5-4.5) 03/19/21 01:19 Albumin/Globulin Ratio 0.4 Ratio (1.1-2.1) L 03/19/21 01:19 SARS-CoV-2 (PCR) Negative (NEGATIVE) 03/19/21 02:09 Influenza Type A (PCR) Negative (NEGATIVE) 03/19/21 02:09 Influenza Type B (PCR) Negative (NEGATIVE) 03/19/21 02:09 RSV (PCR) Negative (NEGATIVE) 03/19/21 02:09 Opioid Opioid Risk Tool Age (Deniz box if 16-45): No History of Preadolescent Sexual Abuse: No Total: 0 Total Score Risk Category: Low Risk Copyright: [facility] predicting aberrant behaviors Diagnosis Discharge Problem: Acute hypotension, Colon cancer metastasized to liver Cardiac dysrhythmia Qualifiers: Arrhythmia type: unspecified cardiac arrhythmia Qualified Code(s): I49.9 - Cardiac arrhythmia, unspecified ADDITIONAL NOTES Additional Notes Additional Notes: Name: RITIKA LEVINE BAcct#: [id number]: [id number] : 1950ex: FLocation: ER Order Number(s): [id number](s):CHEST, 1 VIEW Ordering Physician: ARJUN ARVIZU Primary Care: Avinash Pelletier Service Date: 03/19/21 Service Time: 0130 PROCEDURE: Chest X-ray 1 View . HISTORY: HYPOTENSION . TECHNIQUE: AP view . COMPARISON: 03/07/2021. TECHNICAL QUALITY: Satisfactory . FINDINGS: Poor inspiratory effort. Unchanged right subclavian Port-A-Cath. Normal size heart with pacemaker on the left. Mediastinum and hilar regions show no masses or lymphadenopathy . Normal central vascularity . No pulmonary consolidation, masses, pleural fluid, or pneumothorax . No acute bony abnormality . IMPRESSION: No active cardiopulmonary disease . Electronically signed by: Jim Porter (Mar 19, 2021 02:42:34) Report Electronically signed: 03/19/21 0244 CC: Arjun Arvizu
[2021-03-19 02:09] LABS: BASOPHILS # (AUTO) 0.1 X10^3/uL (0.0-0.1); EOSINOPHILS # (AUTO) 0.2 x10^3/uL (0.0-0.2); EOSINOPHILS % (AUTO) 1.6 % (0.9-2.9); HEMATOCRIT 35.2 % (36.0-47.0); HEMOGLOBIN 11.6 g/dL (12.0-16.0); LYMPHOCYTES # (AUTO) 2.4 X10^3/uL (1.3-2.9); LYMPHOCYTES % (AUTO) 18.2 % (21.0-51.0); MEAN CORPUSCULAR HEMOGLOBIN 27.3 pg (27.0-34.0); MEAN CORPUSCULAR HGB CONC 32.9 g/dL (33.0-35.0); MEAN CORPUSCULAR VOLUME 82.9 fL (80.0-100.0); MEAN PLATELET VOLUME 9.3 fL (7.4-11.0); MONOCYTES # (AUTO) 1.9 x10^3/uL (0.3-0.8); NEUTROPHILS # (AUTO) 8.3 x10^3/uL (2.2-4.8); NEUTROPHILS % (AUTO) 64.2 % (42.0-75.0); PLATELET COUNT 183 X10^3/uL (150.0-450.0); RED BLOOD COUNT 4.25 X10^6/uL (3.5-5.4); RED CELL DISTRIBUTION WIDTH 20.3 % (11.6-16.5); WHITE BLOOD COUNT 12.9 X10^3/uL (3.6-10.0)
[2021-03-19 02:19] LABS: ALBUMIN 1.3 g/dL (3.4-5.0); CALCIUM 6.4 mg/dL (8.5-10.1); CARBON DIOXIDE 23.4 mmol/L (21-32); CKMB % 0.6 % (<4); COR CA(FOR HYPOALB) 8.6 mg/dL (8.5-10.1); CREATINE KINASE MB 1.8 ng/mL (0-4.0); CREATININE 1.27 mg/dL (0.55-1.02); TOTAL PROTEIN 4.5 g/dL (6.4-8.2); TROPONIN I 0.23 ng/mL (0-1.5)
[2021-03-19 02:41] LABS: ANISOCYTOSIS 1+; PLATELET MORPHOLOGY COMMENT NORMAL (NORMAL); TARGET CELLS PRESENT
--- NOTE | 2021-03-19 02:44 | RAD ---
PROCEDURE: Chest X-ray 1 View .HISTORY: HYPOTENSION .TECHNIQUE: AP view .COMPARISON: 03/07/2021.TECHNICAL QUALITY: Satisfactory .FINDINGS:Poor inspiratory effort.Unchanged right subclavian Port-A-Cath.Normal size heart with pacemaker on the left.Mediastinum and hilar regions show no masses or lymphadenopathy .Normal central vascularity .No pulmonary consolidation, masses, pleural fluid, or pneumothorax .No acute bony abnormality .IMPRESSION:No active cardiopulmonary disease .Electronically signed by: Jim Porter (Mar 19, 2021 02:42:34)
[2021-03-19 04:59] VITALS: BMI 24.3
[2021-03-19] MEDS ORDERED: VISTARIL PO PRN (05:57)
[2021-03-19] MEDS ORDERED: BETAPACE AF PO SCH (09:00)
[2021-03-19] MEDS ORDERED: PriLOSEC PO SCH (09:00)
[2021-03-19] MEDS: LOVENOX INJ 40 MG SYR SC SCH (10:15)
--- NOTE | 2021-03-19 11:09 | VAS ---
HISTORYBLE SWELLINGSTUDYDuplex venous ultrasound of the bilateral lower extremitiesCOMPARISONNoneTECHNIQUEMultiple banegas scale and color flow Doppler images of the deep venou s system were obtained of the right and left lower extremity.FINDINGSThe deep venous system of the r ight and left lower extremities were evaluated from the level of the common femoral vein through the popliteal veins. Normal color flow and augmentation can be observed. In addition, normal compressio n is seen throughout the deep venous system.IMPRESSIONNegative for DVT.Electronically signed by: Felix Rodgers (Mar 19, 2021 11:07:21)
--- NOTE | 2021-03-19 11:13 | DR.H&P ---
H&P - History & Physical for Day of: H&P Date: 03/19/21 - Chief Complaint Chief Complaint: HYPOTENSION, N/V, FEELING FAINT, LOWER EXTREMITY SWELLING AND PAIN - History of Present Illness History of Present Illness: is a 70 y/o female patient of ours with hx. of colon cancer with mets to liver and pancreas. She presented this morning via EMS with low blood pressure, nausea, vomiting and feeling faint. Family reports that she was transiently less responsive. BP upon EMS assessment was 80/55. She was released from [facility] on 03/18/2021 after having had an ERCP, Biliary Sphincterectomy and a temporary stent placed into the Pancreatic duct on 03/17/2021. Family reports that she also has swelling, pain, and weakness to lower extremities. Other PMH includes CHF, HTN, A-FIB, joint replacement. She is currently followed by , oncologist in [place], [place]. On arrival to the ER, her vitals were: 97.5-91-18-95%RA-66/50. She was started on a dopamine drip at that time. Labs were obtained. Abnormal lab values included the following: WBC 12.9, HGB 11.6, HCT 35.2, CHLORIDE 110, BUN 34, CREATININE 1.27, GLUCOSE 123, LACTIC ACID 4.0, CALCIUM 6.4, TOTAL BILI 6.90, AST 204, ALK PHOS 435, CREATINE KINASE 282, BNP 262, TOTAL PROTEIN 4.5, ALBUMIN 1.3. Covid-19, influenza, and RSV were negative. Blood cultures were set up. A chest xray was obtained and revealed: No active cardiopulmonary disease. EKG revealed: atrial fibrillation with HR 87. She was given a normal saline bolus x 1 in the ER. She was admitted to the ICU for further evaluation and treatment of Hypotension, Cardiac arrhythmia, Colon CA with mets to liver and pancreas, AMS, status post pancreatic stent. She was started on normal saline at 75 ml/hr, Pepcid 20mg iv bid, protonix 40mg iv daily, vistaril 25mg po q8h prn, lovenox 40mg sc daily, and the Dopamine drip. Today, we will administer an additional normal saline bolus. We will consult with , bar tacker. We will also obtain bilateral lower extremity venous dopplers to r/o DVT due to lower extremity swelling. We will repeat cardiac enzymes and EKG. Otherwise, we will continue to monitor and make changes as appropriate. TIME SPENT ON CLINICAL ASSESSMENT, REVIEWING LABS AND IMAGING, DECISION MAKING, AND DOCUMENTATION GREATER THAN 75 MINUTES. - Past Medical History Past Medical History: Hypertension, CHF Additional Medical History: Chronic Back Pain, Freq UTI's - Past Surgical History Surgical History: Joint Replacement Additional Surgical History: ICD, Right Hip Replacement - Family History Family Medical History: Cancer, Coronary Artery Disease, Hypertension - Social History Does patient currently use any type of tobacco product: No Have you used tobacco products in the last 12 months: No Type of Tobacco Use: None Does any household member use tobacco: No Alcohol Use: None - Medications Home Medications: No Known Drug Allergies Allergy (Verified 08/03/19 08:15) CONTINUE taking the following medications hydrochlorothiazide 25 mg PO DAILY 03/19/21 [History] hydroxyzine pamoate 25 mg PO Q8H PRN 03/19/21 [History] lisinopril 20 mg PO DAILY 03/19/21 [History] omeprazole 20 mg PO DAILY 03/19/21 [History] potassium chloride 20 meq PO DAILY 03/19/21 [History] sotalol 160 mg PO BID 03/19/21 [History] - Review of Systems Constitutional: Weakness Eyes: No Symptoms Reported ENT: No Symptoms Reported Respiratory: No Symptoms Reported Cardiovascular: Edema (LOWER EXTREMITIES ) Gastrointestinal: See HPI, Nausea, Vomiting Genitourinary: No Symptoms Reported Musculoskeletal: No Symptoms Reported Skin: No Symptoms Reported Neurological: See HPI, Weakness, Confusion - Physical Exam Vital Signs: Temperature 98.0 F Pulse Rate [Apical] 100 Pulse Rate 108 Respiratory Rate 21 Blood Pressure [Right Arm] 92/58 Blood Pressure [Left Arm] 136/66 Blood Pressure 106/67 O2 Sat by Pulse Oximetry 98 Oriented: Person, Place Eyes: Normal Ear: Normal Nose: Normal Throat: Normal Respiratory: Diminished Throughout Cardiovascular: Irregular, Edema (BLE 2+ PITTING EDEMA ) : Normal Auscultation: Bowel Sounds: Normal Palpation: Normal Tenderness: Normal Skin: Decreased Turgur Musculoskeletal: Right, Left, Leg, Swelling, Tender Psychiatric: Normal Mood Description: Calm Affect: Normal Speech Pattern: Clear - Assessment/Plan (1) Acute hypotension Status: Acute (2) Dehydration Status: Acute (3) A-fib Qualifiers: Atrial fibrillation type: unspecified Qualified Code(s): I48.91 - Unspecified atrial fibrillation Status: Acute (4) Altered mental status Qualifiers: Altered mental status type: transient alteration of awareness Qualified Code(s): R40.4 - Transient alteration of awareness Status: Acute (5) Colon cancer metastasized to liver Status: Acute - Allergies Allergies/Adverse Reactions: Allergies Allergy/AdvReac Type Severity Reaction Status Date / Time No Known Drug Allergies Allergy Verified 08/03/19 08:15
--- NOTE | 2021-03-19 11:19 | US ---
HISTORYJAUNDICE, ABNORMAL LFTS PRIMARY CANCER IS COLON. SECONDARY CANCER TO LIVER, LUNG. PT UNSURE IF SHE HAS HAD HER GB REMOVEDSTUDYABDOMEN USCOMPARISONNoneTECHNIQUEMultiple banegas scale and color flow Doppler images of the abdomen were obtained with image documentation.FINDINGSHepatomegaly. Diffuse heterogeneous echogenicity of the liver could be due to diffuse metastatic disease. Hepatopetal portal venous flow is seen on Doppler ultrasound. One of the hepatic masses appears to be rim calcified measuring approximately 2.5 cm in diameter.Gallbladder and common bile duct are obscured due to bowel gas. No intrahepatic biliary ductal dilation is seen. There is mild ascites around the liver with more moderate ascites in the left upper quadrant.Visualized portions of the pancreas appear normal.Spleen is normal in size.No renal abnormality. Right kidney measures 9.0 cm in length and left kidney measures 10.3 cm in length.Visualized portions of the aorta appear normal in size. IVC is obscured due to bowel gas.IMPRESSIONProbable diffuse hepatic metastases.Likely moderate ascites.Electronically signed by: Justus Rodgers (Mar 19, 2021 11:17:10)
[2021-03-19] MEDS: PEPCID 20 MG IV PREMIX* 20 MG/50 ML BAG IV SCH (12:09)
[2021-03-19] MEDS: NS 1000 ML 1,000 ML IV SCH (12:14)
[2021-03-19 12:29] LABS: CKMB % 0.6 % (<4); CREATINE KINASE MB 2.6 ng/mL (0-4.0); TROPONIN I 0.18 ng/mL (0-1.5)
[2021-03-20] MEDS: NS 1000 ML 1,000 ML IV SCH ×2 (01:46→15:10)
[2021-03-20] MEDS: DOPAMINE IV PREMIX 400 MG/250 ML 400 MG/250 ML BAG IV PRN (04:30)
[2021-03-20 06:19] LABS: BASOPHILS # (AUTO) 0.1 X10^3/uL (0.0-0.1); EOSINOPHILS # (AUTO) 0.2 x10^3/uL (0.0-0.2); HEMOGLOBIN 13.3 g/dL (12.0-16.0); MEAN CORPUSCULAR VOLUME 83.2 fL (80.0-100.0); MONOCYTES # (AUTO) 1.9 x10^3/uL (0.3-0.8); MONOCYTES % (AUTO) 14.3 % (0.0-13.0); WHITE BLOOD COUNT 13.1 X10^3/uL (3.6-10.0)
[2021-03-20 06:34] LABS: AMMONIA < 10 umol/L (11-32)
[2021-03-20 06:41] LABS: BASOPHILS % (AUTO) 0.7 % (0.2-1.0); EOSINOPHILS % (AUTO) 1.9 % (0.9-2.9); HEMATOCRIT 40.4 % (36.0-47.0); LACTIC ACID 3.1 mmol/L (0.4-2.0); LYMPHOCYTES # (AUTO) 2.1 X10^3/uL (1.3-2.9); LYMPHOCYTES % (AUTO) 15.9 % (21.0-51.0); MEAN CORPUSCULAR HEMOGLOBIN 27.3 pg (27.0-34.0); MEAN CORPUSCULAR HGB CONC 32.8 g/dL (33.0-35.0); MEAN PLATELET VOLUME 8.9 fL (7.4-11.0); NEUTROPHILS # (AUTO) 8.8 x10^3/uL (2.2-4.8); NEUTROPHILS % (AUTO) 67.2 % (42.0-75.0); PLATELET COUNT 157 X10^3/uL (150.0-450.0); RED BLOOD COUNT 4.86 X10^6/uL (3.5-5.4); RED CELL DISTRIBUTION WIDTH 20.7 % (11.6-16.5)
[2021-03-20 06:45] LABS: ALANINE AMINOTRANSFERASE 52 Units/L (12-78); ALBUMIN 1.4 g/dL (3.4-5.0); ALKALINE PHOSPHATASE 563 Units/L (46-116); ASPARTATE AMINO TRANSFERASE 423 Units/L (15-37); BLOOD UREA NITROGEN 36 mg/dL (7-18); CALCIUM 7.7 mg/dL (8.5-10.1); CARBON DIOXIDE 25.8 mmol/L (21-32); CHLORIDE 107 mmol/L (98-107); CKMB % 0.4 % (<4); COR CA(FOR HYPOALB) 9.8 mg/dL (8.5-10.1); COR NA(FOR HYPERGLY) 141 mmol/L (136-145); CREATINE KINASE 559 Units/L (26-192); CREATINE KINASE MB 2.2 ng/mL (0-4.0); CREATININE 1.09 mg/dL (0.55-1.02); SODIUM 141 mmol/L (136-145); TOTAL PROTEIN 5.6 g/dL (6.4-8.2); TROPONIN I 0.09 ng/mL (0-1.5); eGFR NON BLACK RACES 53 (>60)
[2021-03-20 06:46] LABS: BAND NEUTROPHILS % 2 % (0-10)
[2021-03-20 06:47] LABS: ANISOCYTOSIS 1+; PLATELET MORPHOLOGY COMMENT NORMAL (NORMAL); TARGET CELLS PRESENT
[2021-03-20] MEDS: LOVENOX INJ 40 MG SYR SC SCH (08:34)
[2021-03-20] MEDS: PROTONIX INJ 40 MG VIAL IVP SCH (08:35)
[2021-03-20] MEDS: PEPCID 20 MG IV PREMIX* 20 MG/50 ML BAG IV SCH (08:35)
[2021-03-20] MEDS ORDERED: MORPHINE SULFATE INJ 2 MG INJ ONE (17:10)
[2021-03-20] MEDS: MORPHINE SULFATE INJ 2 MG INJ IVP PRN (17:14)
[2021-03-21] MEDS: NS 1000 ML 1,000 ML IV SCH ×2 (05:20→20:07)
[2021-03-21 06:08] LABS: BASOPHILS # (AUTO) 0.1 X10^3/uL (0.0-0.1); BASOPHILS % (AUTO) 0.8 % (0.2-1.0); EOSINOPHILS # (AUTO) 0.3 x10^3/uL (0.0-0.2); EOSINOPHILS % (AUTO) 1.9 % (0.9-2.9); LYMPHOCYTES # (AUTO) 2.2 X10^3/uL (1.3-2.9); LYMPHOCYTES % (AUTO) 16.6 % (21.0-51.0); MEAN CORPUSCULAR HEMOGLOBIN 27.4 pg (27.0-34.0); MEAN CORPUSCULAR HGB CONC 32.6 g/dL (33.0-35.0); MEAN CORPUSCULAR VOLUME 83.9 fL (80.0-100.0); MEAN PLATELET VOLUME 9.2 fL (7.4-11.0); MONOCYTES # (AUTO) 1.9 x10^3/uL (0.3-0.8); MONOCYTES % (AUTO) 13.8 % (0.0-13.0); NEUTROPHILS % (AUTO) 66.9 % (42.0-75.0); PLATELET COUNT 138 X10^3/uL (150.0-450.0); RED BLOOD COUNT 4.76 X10^6/uL (3.5-5.4); RED CELL DISTRIBUTION WIDTH 21.2 % (11.6-16.5); WHITE BLOOD COUNT 13.4 X10^3/uL (3.6-10.0)
[2021-03-21 06:35] LABS: ALANINE AMINOTRANSFERASE 57 Units/L (12-78); ALBUMIN 1.5 g/dL (3.4-5.0); ALKALINE PHOSPHATASE 636 Units/L (46-116); ASPARTATE AMINO TRANSFERASE 460 Units/L (15-37); BLOOD UREA NITROGEN 35 mg/dL (7-18); CALCIUM 7.8 mg/dL (8.5-10.1); CARBON DIOXIDE 23.1 mmol/L (21-32); CHLORIDE 110 mmol/L (98-107); COR CA(FOR HYPOALB) 9.8 mg/dL (8.5-10.1); COR NA(FOR HYPERGLY) 142 mmol/L (136-145); CREATININE 0.99 mg/dL (0.55-1.02); SODIUM 142 mmol/L (136-145); TOTAL PROTEIN 5.8 g/dL (6.4-8.2); eGFR NON BLACK RACES 59 (>60)
[2021-03-21 07:35] LABS: ANISOCYTOSIS 1+; GIANT PLATELET FEW; PLATELET MORPHOLOGY COMMENT NORMAL (NORMAL)
[2021-03-21] MEDS: PEPCID 20 MG IV PREMIX* 20 MG/50 ML BAG IV SCH (08:39)
[2021-03-21] MEDS: PROTONIX INJ 40 MG VIAL IVP SCH (08:39)
[2021-03-21] MEDS: LOVENOX INJ 40 MG SYR SC SCH (08:39)
[2021-03-22 05:01] LABS: BASOPHILS # (AUTO) 0.1 X10^3/uL (0.0-0.1); BASOPHILS % (AUTO) 0.6 % (0.2-1.0); EOSINOPHILS # (AUTO) 0.2 x10^3/uL (0.0-0.2); EOSINOPHILS % (AUTO) 1.3 % (0.9-2.9); HEMATOCRIT 36.6 % (36.0-47.0); HEMOGLOBIN 12.1 g/dL (12.0-16.0); LYMPHOCYTES # (AUTO) 1.6 X10^3/uL (1.3-2.9); LYMPHOCYTES % (AUTO) 12.4 % (21.0-51.0); MEAN CORPUSCULAR HEMOGLOBIN 27.5 pg (27.0-34.0); MEAN CORPUSCULAR HGB CONC 33.1 g/dL (33.0-35.0); MEAN PLATELET VOLUME 9.2 fL (7.4-11.0); MONOCYTES # (AUTO) 1.7 x10^3/uL (0.3-0.8); MONOCYTES % (AUTO) 13.4 % (0.0-13.0); NEUTROPHILS % (AUTO) 72.3 % (42.0-75.0); PLATELET COUNT 112 X10^3/uL (150.0-450.0); RED CELL DISTRIBUTION WIDTH 20.9 % (11.6-16.5); WHITE BLOOD COUNT 12.5 X10^3/uL (3.6-10.0)
[2021-03-22 05:24] LABS: ALANINE AMINOTRANSFERASE 47 Units/L (12-78); ALBUMIN 1.2 g/dL (3.4-5.0); ALKALINE PHOSPHATASE 572 Units/L (46-116); ASPARTATE AMINO TRANSFERASE 378 Units/L (15-37); BLOOD UREA NITROGEN 33 mg/dL (7-18); CALCIUM 7.7 mg/dL (8.5-10.1); CARBON DIOXIDE 20.6 mmol/L (21-32); CHLORIDE 113 mmol/L (98-107); COR CA(FOR HYPOALB) 9.9 mg/dL (8.5-10.1); CREATININE 0.88 mg/dL (0.55-1.02); SODIUM 144 mmol/L (136-145); TOTAL PROTEIN 5.1 g/dL (6.4-8.2); eGFR NON BLACK RACES > 60 (>60)
[2021-03-22 05:25] LABS: BAND NEUTROPHILS % 2 % (0-10); METAMYELOCYTES % 4; PLATELET MORPHOLOGY COMMENT NORMAL (NORMAL)
[2021-03-22 05:26] LABS: ANISOCYTOSIS 1+; HYPOCHROMASIA 1+; MICROCYTOSIS 1+
[2021-03-22] MEDS: NS 1000 ML 1,000 ML IV SCH ×2 (05:48→17:52)
[2021-03-22] MEDS: PROTONIX TAB 40 MG PO SCH (08:40)
[2021-03-22] MEDS: LOVENOX INJ 40 MG SYR SC SCH (08:44)
[2021-03-22] MEDS: PEPCID 20 MG IV PREMIX* 20 MG/50 ML BAG IV SCH (08:44)
[2021-03-22] MEDS ORDERED: K-RIDER 10 MEQ/NS 100 ML 40 MEQ/400 ML BAG IV ONE (20:06)
[2021-03-22] MEDS: K-RIDER 10 MEQ/NS 100 ML 10 MEQ/100 ML BAG IV PRN ×3 (20:41→23:57)
[2021-03-23] MEDS: NS 1000 ML 1,000 ML IV SCH ×2 (00:08→15:01)
[2021-03-23] MEDS: K-RIDER 10 MEQ/NS 100 ML 10 MEQ/100 ML BAG IV PRN ×3 (02:27→23:43)
[2021-03-23 06:22] LABS: BASOPHILS # (AUTO) 0.1 X10^3/uL (0.0-0.1); BASOPHILS % (AUTO) 0.7 % (0.2-1.0); EOSINOPHILS # (AUTO) 0.1 x10^3/uL (0.0-0.2); EOSINOPHILS % (AUTO) 0.6 % (0.9-2.9); HEMATOCRIT 38.2 % (36.0-47.0); HEMOGLOBIN 12.5 g/dL (12.0-16.0); LYMPHOCYTES # (AUTO) 1.9 X10^3/uL (1.3-2.9); LYMPHOCYTES % (AUTO) 10.9 % (21.0-51.0); MEAN CORPUSCULAR HEMOGLOBIN 27.5 pg (27.0-34.0); MEAN CORPUSCULAR HGB CONC 32.7 g/dL (33.0-35.0); MEAN CORPUSCULAR VOLUME 84.2 fL (80.0-100.0); MEAN PLATELET VOLUME 8.9 fL (7.4-11.0); MONOCYTES # (AUTO) 2.4 x10^3/uL (0.3-0.8); MONOCYTES % (AUTO) 14.2 % (0.0-13.0); NEUTROPHILS # (AUTO) 12.6 x10^3/uL (2.2-4.8); NEUTROPHILS % (AUTO) 73.6 % (42.0-75.0); PLATELET COUNT 132 X10^3/uL (150.0-450.0); RED BLOOD COUNT 4.54 X10^6/uL (3.5-5.4); RED CELL DISTRIBUTION WIDTH 21.5 % (11.6-16.5); WHITE BLOOD COUNT 17.1 X10^3/uL (3.6-10.0)
[2021-03-23 06:57] LABS: ALANINE AMINOTRANSFERASE 36 Units/L (12-78); ALBUMIN 1.1 g/dL (3.4-5.0); ALKALINE PHOSPHATASE 513 Units/L (46-116); ASPARTATE AMINO TRANSFERASE 280 Units/L (15-37); BLOOD UREA NITROGEN 28 mg/dL (7-18); CALCIUM 7.7 mg/dL (8.5-10.1); CHLORIDE 114 mmol/L (98-107); CREATININE 0.71 mg/dL (0.55-1.02); MAGNESIUM 1.9 mg/dL (1.7-2.9); SODIUM 144 mmol/L (136-145); TOTAL PROTEIN 4.8 g/dL (6.4-8.2); eGFR NON BLACK RACES > 60 (>60)
[2021-03-23 07:06] LABS: ANISOCYTOSIS 1+; BAND NEUTROPHILS % 2 % (0-10); PLATELET MORPHOLOGY COMMENT NORMAL (NORMAL)
[2021-03-23 07:07] LABS: TARGET CELLS FEW
--- NOTE | 2021-03-23 09:01 | PCM.PROG ---
Progress Note - Progress Note for Day of Date of Exam: 03/20/21 - Subjective Subjective: WAS ADMITTED DUE TO HYPOTHENSION, DEHYDRATION, A-FIB, AMS. SHE HAS A HX OF COLON CANCER WITH METS TO LIVER AND PANCREASE. SHE HAD A SMALL PANCREATIC STENT INSERTED DUE TO SIGNIFICANT DIFFUSE NARROWING OF THE INTRAHEPATIC BILIARY TREE. AN ABDOMINAL ULTRASOUND WAS OBTAINED YESTERDAY AND REVEALED MULTIPLE MASSES IN THE LIVER AND MODERATE ASCITES. PATIENTS FAMILY REPORTS THAT PATIENT HAS BEEN REFUSING CHEMO. WAS CONSULTED. HE SPOKE WITH PATIENTS ONCOLOGIST AND THEY WERE IN AGREEMENT THAT PATIENTS PROGNOSIS WAS POOR AND THEY SUGGESTED HOSPICE CARE. TODAY, PATIENT IS LYING IN BED WITH EYES CLOSED ON MORNING ROUNDS. SHE AWAKENS TO VERBAL STIMULI, BUT CONTINUES TO BE DROWSY. FAMILY REPORTS THAT SHE CONTINUES WITH SEVERE WEAKNESS. SHE HAS MILD EPIGASTRIC TENDERNESS. SHE CONTINUES WITH 1+ PITTING EDEMA TO LOWER EXTREMITIES. HER VITALS THIS MORNING ARE: 98.4-76-24-91%-126/86. LABS WERE OBTAINED. ABNORMAL LAB VALUES INCLUDE THE FOLLOWING: WBC 13.1, BUN 36, CREATININE 1.09, LACTIC ACID 3.1, CALCIUM 7.7, TOTAL BILI 8.70, AST 423, ALK PHOS 563, AMMONIA <10, CREATINE KINASE 559, BNP 358, TOTAL PROTEIN 5.6, ALBUMIN 1.4. BLOOD CULTURES ARE PENDING. VENOUS DOPPLERS OF LOWER EXTREMITIES WERE NEGATIVE. SHE IS CURRENTLY ON A DOPAMINE DRIP, NORMAL SALINE AT 75 ML/HR, LOVENOX 40MG SC DAILY, PEPCID 20MG IV DAILY, PROTONIX 40MG PO DAILY, VISTARIL 25MG PO Q8H PRN, MORPHINE 1-2MG IV Q4H PRN. WE WILL CONTINUE WITH CURRENT PLAN OF CARE TODAY. OTHERWISE, WE WILL FOLLOW UP WITH AM LABS AND CONTINUE TO MONITOR. TIME SPENT ON CLINICAL ASSESSMENT, REVIEWING LABS AND IMAGING, DECISION MAKING, AND DOCUMENTATION GREATER THAN 45 MINUTES. - Past Medical Family Social History Past Med/Fam/Surg Hx: No changes since H&P Allergies: Allergies No Known Drug Allergies Allergy (Verified 08/03/19 08:15) - Review of Systems ROS: No change since H&P - Vital Signs and I&O's Vital Signs: Temperature 97.8 F Pulse Rate [Right] 80 Pulse Rate [Apical] 94 Pulse Rate 107 Respiratory Rate 22 Blood Pressure [Right Arm] 97/53 Blood Pressure [Left Arm] 136/66 Blood Pressure 129/81 O2 Sat by Pulse Oximetry 94 Intake and Output: Intake & Output 03/20/21 03/21/21 03/22/21 03/23/21 11:59 11:59 11:59 11:59 Intake Total 4744 / 4744 2455 / 2455 2163.90 / 2163.90 2128 Balance 4744 / 4744 2455 / 2455 2163.90 / 2163.90 2128 - Physical Exam Oriented: Person, Place Eyes: Normal Ear: Normal Nose: Normal Throat: Normal Respiratory: Generalized, Diminished Cardiovascular: Irregular, Edema (BLE 1+ PITTING EDEMA ) : Normal Auscultation: Bowel Sounds: Normal Tenderness: Normal, Epigastric Skin: Decreased Turgur Musculoskeletal: Right, Left, Leg, Swelling, Tender Psychiatric: Normal Mood Description: Calm Affect: Normal Speech Pattern: Delayed - Laboratory and Diagnostics Result Diagrams: 03/23/21 06:07 03/23/21 06:07 Labs: 03/19/21 02:15 Blood Blood Culture - Preliminary 03/19/21 02:02 Blood Blood Culture - Preliminary Laboratory WBC 17.1 X10^3/uL (3.6-10.0) H 03/23/21 06:07 RBC 4.54 X10^6/uL (3.5-5.4) 03/23/21 06:07 Hgb 12.5 g/dL (12.0-16.0) 03/23/21 06:07 Hct 38.2 % (36.0-47.0) 03/23/21 06:07 MCV 84.2 fL (80.0-100.0) 03/23/21 06:07 MCH 27.5 pg (27.0-34.0) 03/23/21 06:07 MCHC 32.7 g/dL (33.0-35.0) L 03/23/21 06:07 RDW 21.5 % (11.6-16.5) H 03/23/21 06:07 Plt Count 132 X10^3/uL (150.0-450.0) L 03/23/21 06:07 Plt Count Comment Decreased (ADEQUATE) A 03/23/21 06:07 MPV 8.9 fL (7.4-11.0) 03/23/21 06:07 Neut % (Auto) 73.6 % (42.0-75.0) 03/23/21 06:07 Lymph % (Auto) 10.9 % (21.0-51.0) L 03/23/21 06:07 [place] % (Auto) 14.2 % (0.0-13.0) H 03/23/21 06:07 Eos % (Auto) 0.6 % (0.9-2.9) L 03/23/21 06:07 Baso % (Auto) 0.7 % (0.2-1.0) 03/23/21 06:07 Neut # (Auto) 12.6 x10^3/uL (2.2-4.8) H 03/23/21 06:07 Lymph # (Auto) 1.9 X10^3/uL (1.3-2.9) 03/23/21 06:07 [place] # (Auto) 2.4 x10^3/uL (0.3-0.8) H 03/23/21 06:07 Eos # (Auto) 0.1 x10^3/uL (0.0-0.2) 03/23/21 06:07 Baso # (Auto) 0.1 X10^3/uL (0.0-0.1) 03/23/21 06:07 Absolute Nucleated RBC 0.2 /100WBC 03/23/21 06:07 Total Counted 100 03/23/21 06:07 Neutrophils % (Manual) 85 % (39-76) H 03/23/21 06:07 Band Neutrophils % 2 % (0-10) 03/23/21 06:07 Lymphocytes % (Manual) 6 % (13-43) L 03/23/21 06:07 Monocytes % (Manual) 7 % (4-9) 03/23/21 06:07 Eosinophils % (Manual) 1 % (0-6) 03/22/21 04:35 Metamyelocytes % 4 03/22/21 04:35 Nucleated RBCs 1 03/20/21 05:20 Giant Platelets Few 03/21/21 05:00 Plt Morphology Comment Normal (NORMAL) 03/23/21 06:07 RBC Morphology Abnormal (NORMAL) A 03/23/21 06:07 Hypochromasia 1+ A 03/22/21 04:35 Anisocytosis 1+ A 03/23/21 06:07 Microcytosis 1+ A 03/22/21 04:35 Macrocytosis Slight A 03/21/21 05:00 Target Cells Few 03/23/21 06:07 Sodium 144 mmol/L (136-145) 03/23/21 06:07 Corrected Sodium TNP 03/23/21 06:07 Potassium 3.6 mmol/L (3.5-5.1) 03/23/21 06:07 Chloride 114 mmol/L (98-107) H 03/23/21 06:07 Carbon Dioxide 21.0 mmol/L (21-32) 03/23/21 06:07 BUN 28 mg/dL (7-18) H 03/23/21 06:07 Creatinine 0.71 mg/dL (0.55-1.02) 03/23/21 06:07 Est GFR (MDRD) Af Amer > 60 (>60) 03/23/21 06:07 Est GFR (MDRD) Non-Af > 60 (>60) 03/23/21 06:07 Glucose 80 mg/dL (65-99) 03/23/21 06:07 Lactic Acid 3.1 mmol/L (0.4-2.0) H 03/20/21 05:20 Calcium 7.7 mg/dL (8.5-10.1) L 03/23/21 06:07 Corrected Calcium 10.0 mg/dL (8.5-10.1) 03/23/21 06:07 Magnesium 1.9 mg/dL (1.7-2.9) 03/23/21 06:07 Total Bilirubin 7.90 mg/dL (0.2-1.0) H 03/23/21 06:07 AST 280 Units/L (15-37) H 03/23/21 06:07 ALT 36 Units/L (12-78) 03/23/21 06:07 Alkaline Phosphatase 513 Units/L (46-116) H 03/23/21 06:07 Ammonia < 10 umol/L (11-32) L 03/20/21 05:20 Creatine Kinase 559 Units/L (26-192) H 03/20/21 05:20 CK-MB (CK-2) 2.2 ng/mL (0-4.0) 03/20/21 05:20 CK/CKMB % Calc 0.4 % (<4) 03/20/21 05:20 Troponin I 0.09 ng/mL (0-1.5) 03/20/21 05:20 B-Natriuretic Peptide 358 pg/mL (0-79) H 03/20/21 05:20 Total Protein 4.8 g/dL (6.4-8.2) L 03/23/21 06:07 Albumin 1.1 g/dL (3.4-5.0) L 03/23/21 06:07 Globulin 3.7 g/dL (2.5-4.5) 03/23/21 06:07 Albumin/Globulin Ratio 0.3 Ratio (1.1-2.1) L 03/23/21 06:07 SARS-CoV-2 (PCR) Negative (NEGATIVE) 03/19/21 02:09 Influenza Type A (PCR) Negative (NEGATIVE) 03/19/21 02:09 Influenza Type B (PCR) Negative (NEGATIVE) 03/19/21 02:09 RSV (PCR) Negative (NEGATIVE) 03/19/21 02:09 - Plan (1) Acute hypotension Status: Acute (2) Dehydration Status: Acute (3) A-fib Status: Acute Qualifiers: Atrial fibrillation type: unspecified Qualified Code(s): I48.91 - Unspecified atrial fibrillation (4) Altered mental status Status: Acute Qualifiers: Altered mental status type: transient alteration of awareness Qualified Code(s): R40.4 - Transient alteration of awareness (5) Colon cancer metastasized to liver Status: Acute
[2021-03-23] MEDS: LOVENOX INJ 40 MG SYR SC SCH (09:24)
[2021-03-23] MEDS: PEPCID 20 MG IV PREMIX* 20 MG/50 ML BAG IV SCH (09:24)
[2021-03-23] MEDS ORDERED: K-RIDER 10 MEQ/NS 100 ML 10 MEQ/100 ML BAG IV PRN (09:25)
[2021-03-23] MEDS: PROTONIX TAB 40 MG PO SCH (09:25)
[2021-03-23] MEDS ORDERED: KLOR-CON PO PRN (09:25)
[2021-03-23] MEDS ORDERED: MICRO K EXTEN CAP 10 MEQ PO PRN (09:25)
[2021-03-23] MEDS ORDERED: K-DUR TAB 20 MEQ PO PRN (09:25)
[2021-03-23] MEDS ORDERED: POTASSIUM CHL 40 MEQ/NS 0.45% 500 ML IV PRN (09:25)
[2021-03-23] MEDS ORDERED: POTASSIUM CHLORIDE LIQ 20 MEQ UDC PO PRN (09:25)
[2021-03-23] MEDS ORDERED: POTASSIUM CHL 60 MEQ/NS 0.45% 500 ML IV PRN (09:25)
--- NOTE | 2021-03-23 11:00 | PCM.PROG ---
Progress Note - Progress Note for Day of Date of Exam: 03/23/21 - Subjective Subjective: WAS ADMITTED DUE TO HYPOTHENSION, DEHYDRATION, A-FIB, AMS. SHE HAS A HX OF COLON CANCER WITH METS TO LIVER AND PANCREASE. SHE HAD A SMALL PANCREATIC STENT INSERTED DUE TO SIGNIFICANT DIFFUSE NARROWING OF THE INTRAHEPATIC BILIARY TREE. AN ABDOMINAL ULTRASOUND WAS OBTAINED YESTERDAY AND REVEALED MULTIPLE MASSES IN THE LIVER AND MODERATE ASCITES. PATIENTS FAMILY REPORTS THAT PATIENT HAS BEEN REFUSING CHEMO. WAS CONSULTED. HE SPOKE WITH PATIENTS ONCOLOGIST AND THEY WERE IN AGREEMENT THAT PATIENTS PROGNOSIS WAS POOR AND THEY SUGGESTED HOSPICE CARE. FAMILY IS AGREEABLE TO HOSPICE. TODAY, PATIENT IS LYING IN BED WITH EYES CLOSED ON MORNING ROUNDS. SHE AWAKENS TO VERBAL STIMULI, BUT CONTINUES TO BE DROWSY. FAMILY REPORTS THAT SHE CONTINUES WITH SEVERE WEAKNESS. SHE CONTINUES WITH 1+ PITTING EDEMA TO LOWER EXTREMITIES. HER VITALS THIS MORNING ARE: 97.8-100-19-93%-131/75. LABS WERE OBTAINED. ABNORMAL LAB VALUES INCLUDE THE FOLLOWING: WBC 17.1, PLT COUNT 132, CHLORIDE 114, BUN 28, CALCIUM 7.7, TOTAL BILI 7.90, AST 280, ALK PHOS 513, TOTAL PROTEIN 4.8, ALBUMIN 1.1. SHE IS CURRENTLY ON A DOPAMINE DRIP, NORMAL SALINE AT 75 ML/HR, LOVENOX 40MG SC DAILY, PEPCID 20MG IV DAILY, PROTONIX 40MG PO DAILY, VISTARIL 25MG PO Q8H PRN, MORPHINE 1-2MG IV Q4H PRN, AND THE POTASSIUM AND MAGNESIUM PROTOCOLS. WE WILL CONTINUE WITH CURRENT PLAN OF CARE TODAY. OTHERWISE, WE WILL FOLLOW UP WITH AM LABS AND CONTINUE TO MONITOR. TIME SPENT ON CLINICAL ASSESSMENT, REVIEWING LABS AND IMAGING, DECISION MAKING, AND DOCUMENTATION GREATER THAN 45 MINUTES. - Past Medical Family Social History Past Med/Fam/Surg Hx: No changes since H&P Allergies: Allergies No Known Drug Allergies Allergy (Verified 08/03/19 08:15) - Review of Systems ROS: No change since H&P - Vital Signs and I&O's Vital Signs: Temperature 97.8 F Pulse Rate [Right] 80 Pulse Rate [Apical] 94 Pulse Rate 106 Respiratory Rate 19 Blood Pressure [Right Arm] 97/53 Blood Pressure [Left Arm] 136/66 Blood Pressure 131/75 O2 Sat by Pulse Oximetry 83 Intake and Output: Intake & Output 03/20/21 03/21/21 03/22/21 03/23/21 11:59 11:59 11:59 11:59 Intake Total 4744 / 4744 2455 / 2455 2163.90 / 2163.90 2128 Balance 4744 / 4744 2455 / 2455 2163.90 / 2163.90 2128 - Physical Exam Oriented: Person, Place Eyes: Normal Ear: Normal Nose: Normal Throat: Normal Respiratory: Generalized, Diminished Cardiovascular: Irregular, Edema (BLE 1+ PITTING EDEMA ) : Normal Auscultation: Bowel Sounds: Normal Tenderness: Normal, Epigastric Skin: Decreased Turgur Musculoskeletal: Right, Left, Leg, Swelling, Tender Psychiatric: Normal Mood Description: Calm Affect: Normal Speech Pattern: Delayed - Laboratory and Diagnostics Result Diagrams: 03/23/21 06:07 03/23/21 06:07 Labs: 03/19/21 02:15 Blood Blood Culture - Preliminary 03/19/21 02:02 Blood Blood Culture - Preliminary Laboratory WBC 17.1 X10^3/uL (3.6-10.0) H 03/23/21 06:07 RBC 4.54 X10^6/uL (3.5-5.4) 03/23/21 06:07 Hgb 12.5 g/dL (12.0-16.0) 03/23/21 06:07 Hct 38.2 % (36.0-47.0) 03/23/21 06:07 MCV 84.2 fL (80.0-100.0) 03/23/21 06:07 MCH 27.5 pg (27.0-34.0) 03/23/21 06:07 MCHC 32.7 g/dL (33.0-35.0) L 03/23/21 06:07 RDW 21.5 % (11.6-16.5) H 03/23/21 06:07 Plt Count 132 X10^3/uL (150.0-450.0) L 03/23/21 06:07 Plt Count Comment Decreased (ADEQUATE) A 03/23/21 06:07 MPV 8.9 fL (7.4-11.0) 03/23/21 06:07 Neut % (Auto) 73.6 % (42.0-75.0) 03/23/21 06:07 Lymph % (Auto) 10.9 % (21.0-51.0) L 03/23/21 06:07 [place] % (Auto) 14.2 % (0.0-13.0) H 03/23/21 06:07 Eos % (Auto) 0.6 % (0.9-2.9) L 03/23/21 06:07 Baso % (Auto) 0.7 % (0.2-1.0) 03/23/21 06:07 Neut # (Auto) 12.6 x10^3/uL (2.2-4.8) H 03/23/21 06:07 Lymph # (Auto) 1.9 X10^3/uL (1.3-2.9) 03/23/21 06:07 [place] # (Auto) 2.4 x10^3/uL (0.3-0.8) H 03/23/21 06:07 Eos # (Auto) 0.1 x10^3/uL (0.0-0.2) 03/23/21 06:07 Baso # (Auto) 0.1 X10^3/uL (0.0-0.1) 03/23/21 06:07 Absolute Nucleated RBC 0.2 /100WBC 03/23/21 06:07 Total Counted 100 03/23/21 06:07 Neutrophils % (Manual) 85 % (39-76) H 03/23/21 06:07 Band Neutrophils % 2 % (0-10) 03/23/21 06:07 Lymphocytes % (Manual) 6 % (13-43) L 03/23/21 06:07 Monocytes % (Manual) 7 % (4-9) 03/23/21 06:07 Eosinophils % (Manual) 1 % (0-6) 03/22/21 04:35 Metamyelocytes % 4 03/22/21 04:35 Nucleated RBCs 1 03/20/21 05:20 Giant Platelets Few 03/21/21 05:00 Plt Morphology Comment Normal (NORMAL) 03/23/21 06:07 RBC Morphology Abnormal (NORMAL) A 03/23/21 06:07 Hypochromasia 1+ A 03/22/21 04:35 Anisocytosis 1+ A 03/23/21 06:07 Microcytosis 1+ A 03/22/21 04:35 Macrocytosis Slight A 03/21/21 05:00 Target Cells Few 03/23/21 06:07 Sodium 144 mmol/L (136-145) 03/23/21 06:07 Corrected Sodium TNP 03/23/21 06:07 Potassium 3.6 mmol/L (3.5-5.1) 03/23/21 06:07 Chloride 114 mmol/L (98-107) H 03/23/21 06:07 Carbon Dioxide 21.0 mmol/L (21-32) 03/23/21 06:07 BUN 28 mg/dL (7-18) H 03/23/21 06:07 Creatinine 0.71 mg/dL (0.55-1.02) 03/23/21 06:07 Est GFR (MDRD) Af Amer > 60 (>60) 03/23/21 06:07 Est GFR (MDRD) Non-Af > 60 (>60) 03/23/21 06:07 Glucose 80 mg/dL (65-99) 03/23/21 06:07 Lactic Acid 3.1 mmol/L (0.4-2.0) H 03/20/21 05:20 Calcium 7.7 mg/dL (8.5-10.1) L 03/23/21 06:07 Corrected Calcium 10.0 mg/dL (8.5-10.1) 03/23/21 06:07 Magnesium 1.9 mg/dL (1.7-2.9) 03/23/21 06:07 Total Bilirubin 7.90 mg/dL (0.2-1.0) H 03/23/21 06:07 AST 280 Units/L (15-37) H 03/23/21 06:07 ALT 36 Units/L (12-78) 03/23/21 06:07 Alkaline Phosphatase 513 Units/L (46-116) H 03/23/21 06:07 Ammonia < 10 umol/L (11-32) L 03/20/21 05:20 Creatine Kinase 559 Units/L (26-192) H 03/20/21 05:20 CK-MB (CK-2) 2.2 ng/mL (0-4.0) 03/20/21 05:20 CK/CKMB % Calc 0.4 % (<4) 03/20/21 05:20 Troponin I 0.09 ng/mL (0-1.5) 03/20/21 05:20 B-Natriuretic Peptide 358 pg/mL (0-79) H 03/20/21 05:20 Total Protein 4.8 g/dL (6.4-8.2) L 03/23/21 06:07 Albumin 1.1 g/dL (3.4-5.0) L 03/23/21 06:07 Globulin 3.7 g/dL (2.5-4.5) 03/23/21 06:07 Albumin/Globulin Ratio 0.3 Ratio (1.1-2.1) L 03/23/21 06:07 SARS-CoV-2 (PCR) Negative (NEGATIVE) 03/19/21 02:09 Influenza Type A (PCR) Negative (NEGATIVE) 03/19/21 02:09 Influenza Type B (PCR) Negative (NEGATIVE) 03/19/21 02:09 RSV (PCR) Negative (NEGATIVE) 03/19/21 02:09 - Plan (1) Acute hypotension Status: Acute (2) Dehydration Status: Acute (3) A-fib Status: Acute Qualifiers: Atrial fibrillation type: unspecified Qualified Code(s): I48.91 - Unspecified atrial fibrillation (4) Altered mental status Status: Acute Qualifiers: Altered mental status type: transient alteration of awareness Qualified C ode(s): R40.4 - Transient alteration of awareness (5) Colon cancer metastasized to liver Status: Acute
[2021-03-23] MEDS: MAGNESIUM SULFATE 1 GRAM/100 mL PREMIX 1 GM/100 ML BAG IV PRN ×2 (20:41→21:40)
[2021-03-24] MEDS: NS 1000 ML 1,000 ML IV SCH (02:59)
[2021-03-24] MEDS: MORPHINE SULFATE INJ 2 MG INJ IVP PRN ×2 (05:10→16:49)
[2021-03-24 06:51] LABS: BASOPHILS # (AUTO) 0.1 X10^3/uL (0.0-0.1); BASOPHILS % (AUTO) 0.5 % (0.2-1.0); EOSINOPHILS # (AUTO) 0.1 x10^3/uL (0.0-0.2); EOSINOPHILS % (AUTO) 0.6 % (0.9-2.9); HEMATOCRIT 36.4 % (36.0-47.0); HEMOGLOBIN 11.9 g/dL (12.0-16.0); LYMPHOCYTES # (AUTO) 1.8 X10^3/uL (1.3-2.9); MEAN CORPUSCULAR HEMOGLOBIN 27.4 pg (27.0-34.0); MEAN CORPUSCULAR HGB CONC 32.8 g/dL (33.0-35.0); MEAN CORPUSCULAR VOLUME 83.4 fL (80.0-100.0); MEAN PLATELET VOLUME 8.7 fL (7.4-11.0); MONOCYTES # (AUTO) 2.6 x10^3/uL (0.3-0.8); MONOCYTES % (AUTO) 14.5 % (0.0-13.0); NEUTROPHILS # (AUTO) 13.1 x10^3/uL (2.2-4.8); NEUTROPHILS % (AUTO) 74.4 % (42.0-75.0); PLATELET COUNT 116 X10^3/uL (150.0-450.0); RED BLOOD COUNT 4.36 X10^6/uL (3.5-5.4); RED CELL DISTRIBUTION WIDTH 21.8 % (11.6-16.5); WHITE BLOOD COUNT 17.6 X10^3/uL (3.6-10.0)
[2021-03-24 06:58] LABS: ALANINE AMINOTRANSFERASE 35 Units/L (12-78); ALBUMIN 1.2 g/dL (3.4-5.0); ALKALINE PHOSPHATASE 509 Units/L (46-116); ASPARTATE AMINO TRANSFERASE 229 Units/L (15-37); BLOOD UREA NITROGEN 26 mg/dL (7-18); CALCIUM 7.9 mg/dL (8.5-10.1); CARBON DIOXIDE 18.4 mmol/L (21-32); CHLORIDE 112 mmol/L (98-107); COR CA(FOR HYPOALB) 10.1 mg/dL (8.5-10.1); COR NA(FOR HYPERGLY) 145 mmol/L (136-145); CREATININE 0.79 mg/dL (0.55-1.02); MAGNESIUM 2.3 mg/dL (1.7-2.9); SODIUM 144 mmol/L (136-145); TOTAL PROTEIN 5.1 g/dL (6.4-8.2); eGFR NON BLACK RACES > 60 (>60)
[2021-03-24 07:00] LABS: BAND NEUTROPHILS % 1 % (0-10)
[2021-03-24 07:02] LABS: ANISOCYTOSIS 1+; PLATELET MORPHOLOGY COMMENT NORMAL (NORMAL); TARGET CELLS FEW
[2021-03-24] MEDS: PEPCID 20 MG IV PREMIX* 20 MG/50 ML BAG IV SCH (08:56)
[2021-03-24] MEDS: LOVENOX INJ 40 MG SYR SC SCH (08:56)
[2021-03-24] MEDS: PROTONIX TAB 40 MG PO SCH (08:56)
[2021-03-24] MEDS ORDERED: NS 1000 ML 1,000 ML IV SCH (18:15)
[2021-03-25 08:31] VITALS: BP 195/88
--- NOTE | 2021-03-25 08:48 | PCM.PROG ---
Progress Note - Progress Note for Day of Date of Exam: 03/24/21 - Subjective Subjective: WAS ADMITTED DUE TO HYPOTHENSION, DEHYDRATION, A-FIB, AMS. SHE HAS A HX OF COLON CANCER WITH METS TO LIVER AND PANCREASE. SHE HAD A SMALL PANCREATIC STENT INSERTED DUE TO SIGNIFICANT DIFFUSE NARROWING OF THE INTRAHEPATIC BILIARY TREE. AN ABDOMINAL ULTRASOUND WAS OBTAINED YESTERDAY AND REVEALED MULTIPLE MASSES IN THE LIVER AND MODERATE ASCITES. PATIENTS FAMILY REPORTS THAT PATIENT HAS BEEN REFUSING CHEMO. WAS CONSULTED. HE SPOKE WITH PATIENTS ONCOLOGIST AND THEY WERE IN AGREEMENT THAT PATIENTS PROGNOSIS WAS POOR AND THEY SUGGESTED HOSPICE CARE. FAMILY IS AGREEABLE TO HOSPICE. TODAY, PATIENT IS LYING IN BED WITH EYES CLOSED ON MORNING ROUNDS. SHE AWAKENS TO VERBAL STIMULI, BUT CONTINUES TO BE DROWSY. FAMILY REPORTS THAT SHE CONTINUES WITH SEVERE WEAKNESS. SHE CONTINUES WITH 1+ PITTING EDEMA TO LOWER EXTREMITIES. HER VITALS THIS MORNING ARE: 97.9-711-42-100%-126/84. LABS WERE OBTAINED. ABNORMAL LAB VALUES INCLUDE THE FOLLOWING: WBC 17.6, HGB 11.9, PLT COUNT 116, CHLORIDE 112, CARBON DIOXIDE 18.4, BUN 26, GLUCOSE 122, CALCIUM 7.9, TOTAL PROTEIN 8.20, AST 229, ALK PHOS 509, TOTAL PROTEIN 5.1, ALBUMIN 1.2. SHE IS CURRENTLY ON A DOPAMINE DRIP, NORMAL SALINE AT 75 ML/HR, LOVENOX 40MG SC DAILY, PEPCID 20MG IV DAILY, PROTONIX 40MG PO DAILY, VISTARIL 25MG PO Q8H PRN, MORPHINE 1-2MG IV Q4H PRN, AND THE POTASSIUM AND MAGNESIUM PROTOCOLS. PER WISHES OF FAMILY, WE WILL DISCONTINUE ALL MEDICATIONS WITH EXCEPTION OF MORPHINE 1-2MG IV Q4H PRN. SHE WILL BE DISCHARGED TO HOSPICE ROOM AT [facility] TOMORROW. OTHERWISE, WE WILL FOLLOW UP WITH AM LABS AND CONTINUE TO MONITOR. TIME SPENT ON CLINICAL ASSESSMENT, REVIEWING LABS AND IMAGING, DECISION MAKING, AND DOCUMENTATION GREATER THAN 45 MINUTES. - Past Medical Family Social History Past Med/Fam/Surg Hx: No changes since H&P Allergies: Allergies No Known Drug Allergies Allergy (Verified 08/03/19 08:15) - Review of Systems ROS: No change since H&P - Vital Signs and I&O's Vital Signs: Temperature 97 F Pulse Rate [Right] 80 Pulse Rate [Apical] 94 Pulse Rate 100 Respiratory Rate 18 Blood Pressure [Right Arm] 97/53 Blood Pressure [Left Arm] 136/66 Blood Pressure 195/88 O2 Sat by Pulse Oximetry 96 Intake and Output: Intake & Output 03/22/21 03/23/21 03/24/21 03/25/21 11:59 11:59 11:59 11:59 Intake Total 2163.90 / 2163.90 21285 1389 / 1389 Balance 2163.90 / 2163.90 2128 1389 / 1389 - Physical Exam Oriented: Unable to test Eyes: Normal Ear: Normal Nose: Normal Throat: Normal Respiratory: Generalized, Diminished Cardiovascular: Irregular, Edema (BLE 1+ PITTING EDEMA ) : Normal Auscultation: Bowel Sounds: Normal Tenderness: Epigastric Skin: Decreased Turgur Musculoskeletal: Right, Left, Leg, Swelling, Tender Psychiatric: Normal Mood Description: Calm Affect: Normal Speech Pattern: Delayed - Laboratory and Diagnostics Result Diagrams: 03/24/21 06:15 03/24/21 06:15 Labs: 03/19/21 02:02 Blood Blood Culture - Final 03/19/21 02:15 Blood Blood Culture - Final Laboratory WBC 17.6 X10^3/uL (3.6-10.0) H 03/24/21 06:15 RBC 4.36 X10^6/uL (3.5-5.4) 03/24/21 06:15 Hgb 11.9 g/dL (12.0-16.0) L 03/24/21 06:15 Hct 36.4 % (36.0-47.0) 03/24/21 06:15 MCV 83.4 fL (80.0-100.0) 03/24/21 06:15 MCH 27.4 pg (27.0-34.0) 03/24/21 06:15 MCHC 32.8 g/dL (33.0-35.0) L 03/24/21 06:15 RDW 21.8 % (11.6-16.5) H 03/24/21 06:15 Plt Count 116 X10^3/uL (150.0-450.0) L 03/24/21 06:15 Plt Count Comment Decreased (ADEQUATE) A 03/24/21 06:15 MPV 8.7 fL (7.4-11.0) 03/24/21 06:15 Neut % (Auto) 74.4 % (42.0-75.0) 03/24/21 06:15 Lymph % (Auto) 10.0 % (21.0-51.0) L 03/24/21 06:15 [place] % (Auto) 14.5 % (0.0-13.0) H 03/24/21 06:15 Eos % (Auto) 0.6 % (0.9-2.9) L 03/24/21 06:15 Baso % (Auto) 0.5 % (0.2-1.0) 03/24/21 06:15 Neut # (Auto) 13.1 x10^3/uL (2.2-4.8) H 03/24/21 06:15 Lymph # (Auto) 1.8 X10^3/uL (1.3-2.9) 03/24/21 06:15 [place] # (Auto) 2.6 x10^3/uL (0.3-0.8) H 03/24/21 06:15 Eos # (Auto) 0.1 x10^3/uL (0.0-0.2) 03/24/21 06:15 Baso # (Auto) 0.1 X10^3/uL (0.0-0.1) 03/24/21 06:15 Absolute Nucleated RBC 0.1 /100WBC 03/24/21 06:15 Total Counted 100 03/24/21 06:15 Neutrophils % (Manual) 83 % (39-76) H 03/24/21 06:15 Band Neutrophils % 1 % (0-10) 03/24/21 06:15 Lymphocytes % (Manual) 8 % (13-43) L 03/24/21 06:15 Monocytes % (Manual) 8 % (4-9) 03/24/21 06:15 Eosinophils % (Manual) 1 % (0-6) 03/22/21 04:35 Metamyelocytes % 4 03/22/21 04:35 Nucleated RBCs 1 03/20/21 05:20 Giant Platelets Few 03/21/21 05:00 Plt Morphology Comment Normal (NORMAL) 03/24/21 06:15 RBC Morphology Abnormal (NORMAL) A 03/24/21 06:15 Hypochromasia 1+ A 03/22/21 04:35 Anisocytosis 1+ A 03/24/21 06:15 Microcytosis 1+ A 03/22/21 04:35 Macrocytosis Slight A 03/21/21 05:00 Target Cells Few 03/24/21 06:15 Sodium 144 mmol/L (136-145) 03/24/21 06:15 Corrected Sodium 145 mmol/L (136-145) 03/24/21 06:15 Potassium 4.0 mmol/L (3.5-5.1) 03/24/21 06:15 Chloride 112 mmol/L (98-107) H 03/24/21 06:15 Carbon Dioxide 18.4 mmol/L (21-32) L 03/24/21 06:15 BUN 26 mg/dL (7-18) H 03/24/21 06:15 Creatinine 0.79 mg/dL (0.55-1.02) 03/24/21 06:15 Est GFR (MDRD) Af Amer > 60 (>60) 03/24/21 06:15 Est GFR (MDRD) Non-Af > 60 (>60) 03/24/21 06:15 Glucose 122 mg/dL (65-99) H 03/24/21 06:15 Lactic Acid 3.1 mmol/L (0.4-2.0) H 03/20/21 05:20 Calcium 7.9 mg/dL (8.5-10.1) L 03/24/21 06:15 Corrected Calcium 10.1 mg/dL (8.5-10.1) 03/24/21 06:15 Magnesium 2.3 mg/dL (1.7-2.9) 03/24/21 06:15 Total Bilirubin 8.20 mg/dL (0.2-1.0) H 03/24/21 06:15 AST 229 Units/L (15-37) H 03/24/21 06:15 ALT 35 Units/L (12-78) 03/24/21 06:15 Alkaline Phosphatase 509 Units/L (46-116) H 03/24/21 06:15 Ammonia < 10 umol/L (11-32) L 03/20/21 05:20 Creatine Kinase 559 Units/L (26-192) H 03/20/21 05:20 CK-MB (CK-2) 2.2 ng/mL (0-4.0) 03/20/21 05:20 CK/CKMB % Calc 0.4 % (<4) 03/20/21 05:20 Troponin I 0.09 ng/mL (0-1.5) 03/20/21 05:20 B-Natriuretic Peptide 358 pg/mL (0-79) H 03/20/21 05:20 Total Protein 5.1 g/dL (6.4-8.2) L 03/24/21 06:15 Albumin 1.2 g/dL (3.4-5.0) L 03/24/21 06:15 Globulin 3.9 g/dL (2.5-4.5) 03/24/21 06:15 Albumin/Globulin Ratio 0.3 Ratio (1.1-2.1) L 03/24/21 06:15 SARS-CoV-2 (PCR) Negative (NEGATIVE) 03/19/21 02:09 Influenza Type A (PCR) Negative (NEGATIVE) 03/19/21 02:09 Influenza Type B (PCR) Negative (NEGATIVE) 03/19/21 02:09 RSV (PCR) Negative (NEGATIVE) 03/19/21 02:09 - Plan (1) Palliative care status Status: Acute (2) Acute hypotension Status: Acute (3) Dehydration Status: Acute (4) A-fib Status: Acute Qualifiers: Atrial fibrillation type: unspecified Qualified Code(s): I48.91 - Unspecified atrial fibrillation (5) Altered mental status Status: Acute Qualifiers: Altered mental status type: transient alteration of awareness Qualified Code(s): R40.4 - Transient alteration of awareness (6) Colon cancer metastasized to liver Status: Acute
== END 2021-03-25 09:30 | DRG 315 ==
LOC: ER 01:00 → ICU 03:47 → MED/SURG 03-24 16:33
PROVIDERS: ADMIT Internal Medicine; ATTEND Internal Medicine
DX: Z66 Do not resuscitate; I10 Essential (primary) hypertension; I48.91 Unspecified atrial fibrillation; Z51.5 Encounter for palliative care; R40.4 Transient alteration of awareness; R60.0 Localized edema; C18.9 Malignant neoplasm of colon, unspecified; E86.0 Dehydration; I49.9 Cardiac arrhythmia, unspecified; I95.89 Other hypotension; C78.7 Secondary malignant neoplasm of liver and intrahepatic bile duct; Z20.822 Contact with and (suspected) exposure to COVID-19; R94.31 Abnormal electrocardiogram [ECG] [EKG]